=== PATIENT | female | born 1990 | race Caucasian/White ===

== ENCOUNTER 2020-06-11 05:17 | Inpatient (IN) | payer OTHER ==
[~2020-06-11] VITALS: Ht 165.1 cm; Wt 80.7 kg
--- OUTSIDE RECORDS SUMMARY | ~2020-06-11 | XMS | Encounter Summary ---
Demographics + + + | Address | [address] | | | [place] [address] | + + + | Home Phone | | + + + | Preferred Language | Unknown | + + + | Marital Status | Single | + + + | Mormon Affiliation | Unknown | + + + | Race | Unknown | + + + | Ethnic Group | Unknown | + + + Author + + + | Author | [facility] | | | and Shayanana | + + + | Organization | [facility] | | | and Shayanana | + + + | Address | Unknown | + + + | Phone | Unavailable | + + + Support + + +---------+ + | Name | Relationship | Address | Phone | + + +---------+ + | Rhea Cheema | ECON | Unknown | | + + +---------+ + Care Team Providers + +------+ + | Care Legal Archivist Name | Role | Phone | + +------+ + PCP | Unavailable | + +------+ + Encounter Details +--------+ + + + + | Date | Type | Department | Care Team | Description | +--------+ + + + + | 01/06/ | Hospital | [facility] | Layne Mccurdy | | | 2016 | Encounter | [facility] | [address] | | | | | [place] [facility] [address] | | | | | [address] | [place] [address] | | | | | [address] [place], [place] | [phone] | | | | | [address] | | | | | | [phone] | | | +--------+ + + + + Social History + +-------+ +--------+------+ | Tobacco Use | Types | Packs/Day | Years | Date | | | | | Used | | + +-------+ +--------+------+ | Never Assessed | | | | | + +-------+ +--------+------+ + + + | Sex Assigned at | Date Recorded | | | | + + + | Not on file | | + + + documented as of this encounter Plan of Treatment Not on filedocumented as of this encounter Visit Diagnoses Not on filedocumented in this encounter"
--- OUTSIDE RECORDS SUMMARY | ~2020-06-11 | XMS | Encounter Summary ---
Demographics + + + | Address | [address] | | | [place] [address] | + + + | Home Phone | | + + + | Preferred Language | Unknown | + + + | Marital Status | Single | + + + | Methodist Affiliation | Unknown | + + + | Race | Unknown | + + + | Ethnic Group | Unknown | + + + Author + + + | Author | [facility] | | | and Shayanana | + + + | Organization | [facility] | | | and [...] Team Providers + +------+ + | Care Manager Embalmer Funeral Director Name | Role | Phone | + +------+ + | Layne Mccurdy MD | PCP | | + +------+ + Encounter Details +--------+ + + + + | Date | Type | Department | Care Team | Description | +--------+ + + + + | 01/25/ | Hospital | [facility] | Layne Mccurdy | Pelvic pain | | 2017 | Encounter | [facility] | [address] | | | | | [address] | [address] | | | | | [place], [place] | [place] [address] | | | | | [address] | [phone] | | | | | [phone] | | | +--------+ + + + [...] + + documented as of this encounter Medications at Time of Discharge + + + +---------+ + + | Medication | Sig | Dispensed | Refills | Start | End Date | | | | | | Date | | + + + +---------+ + + | citalopram | 1 tablet daily | 30 | 3 | 01/11/20 | | | (CELEXA) 10 mg | | tablet | | 17 | 7 | | tablet | | | | | | + + + +---------+ + + | VALERIA-28 0.15-30 | | | 12 | 04/06/20 | | | MG-MCG per tablet | | | | 16 | 7 | + + + +---------+ + + documented as of this encounter Plan of Treatment Not on filedocumented as of this encounter Procedures + +--------+ + + + | Procedure Name | Priori | Date/Time | Associated Diagnosis | Comments | | | ty | | | | + +--------+ + + + | US PELVIS W | Routin | 01/25/2017 | Pelvic pain | Results for this | | TRANSVAGINAL | e | 3:29 PM | | procedure are in the | | | | PDT | | results section. | + +--------+ + + + documented in this encounter Results US Pelvis W Transvaginal (01/25/2017 3:29 PM PDT) + + | Specimen | + + | | + + + + + | Narrative | Performed At | + + + | [address] | | | [place], [place] [address] | | | NAME: KERRI WHELAN DATE: 01/25/2017 : | | | 1990 PT GENDER: F ROOM: Out PHYSICIAN: | | | LAYNE MCCURDY PID#: [id number] CC TO: MR#: | | | PROCEDURE: ULTRASOUND PELVIC (TRANSABDOMINAL AND TRANSVAGINAL) | | | INDICATIONS: Pelvic pain for 3 weeks. COMPARISON: | | | None. LMP: Spotting x 3 months. SURGERIES: No. LAB | | | RESULTS: N/A. HCG: Negative. FOOD AND BEVERAGE COORDINATOR: | | | N/A. FINDINGS - TRANSABDOMINAL IMAGING UTERUS:Measurement: | | | See below. Volume: See below. Endometrium: See below. | | | RIGHT ADNEXA:Ovary measurement: See below.LEFT ADNEXA:Ovary | | | measurement: See below.BLADDER:Normal. FINDINGS - TRANSVAGINAL | | | IMAGING UTERUS:Measurement: 3.5 x 4.5 x 7.0 cm Volume: 58.2 mL | | | Endometrium: 2.7 mmRIGHT ADNEXA:Ovary measurement: 20 x 22 x | | | 33 mmLEFT ADNEXA:Ovary measurement: 15 x 20 x 21 [id number] No | | | free fluid. IMPRESSION: No explanation for pelvic pain is | | | identified. Vascular flow is seen in each ovary. | | | Dictated by: Lora Jaime MD on 01/25/2017 at 16:34 Transcribed by: | | | on 01/26/2017 at 9:56 | | + + + + + | Procedure Note | + + | Chas, Rad Results In - 01/28/2017 8:50 PM PDT [facility] | | [address] [facility] | | [place], [place] [address] | | | | | | NAME: KERRI WHELAN DATE: 01/25/2017 | | : 1990 PT GENDER: F ROOM: Out | | PHYSICIAN: LAYNE MCCURDY PID#: [id number] | | CC TO: MR#: | | | | PROCEDURE: ULTRASOUND PELVIC (TRANSABDOMINAL AND TRANSVAGINAL) | | | | INDICATIONS: Pelvic pain for 3 weeks. | | | | COMPARISON: None. | | LMP: Spotting x 3 months. | | SURGERIES: No. | | LAB RESULTS: N/A. HCG: Negative. | | FOOD AND BEVERAGE COORDINATOR: N/A. | | | | FINDINGS - TRANSABDOMINAL IMAGING | | UTERUS:Measurement: See below. Volume: See below. Endometrium: See | | below. RIGHT ADNEXA:Ovary measurement: See below.LEFT ADNEXA:Ovary | | measurement: See below.BLADDER:Normal. | | FINDINGS - TRANSVAGINAL IMAGING | | UTERUS:Measurement: 3.5 x 4.5 x 7.0 cm Volume: 58.2 mL Endometrium: 2.7 | | mmRIGHT ADNEXA:Ovary measurement: 20 x 22 x 33 mmLEFT ADNEXA:Ovary | | measurement: 15 x 20 x 21 [id number] No free fluid. | | IMPRESSION: | | No explanation for pelvic pain is identified. Vascular flow is seen in | | each ovary. | | | | | | | | Dictated by: Lora Jaime MD on 01/25/2017 at 16:34 | | Transcribed by: KIM on 01/26/2017 at 9:56 | | | | | | | | | | | | | | | | | | | | | + + documented in this encounter Visit Diagnoses + + | Diagnosis | + + | Pelvic pain | + + documented in this encounter"
--- OUTSIDE RECORDS SUMMARY | ~2020-06-11 | XMS | Encounter Summary ---
Demographics + + + | Address | [address] | | | [place] [address] | + + + | Home Phone | | + + + | Preferred Language | Unknown | + + + | Marital Status | Single | + + + | Islam Affiliation | Unknown | + + + | Race | Unknown | + + + | Ethnic Group | Unknown | + + + Author + + + | Author | [facility] | | | and Shayanana | + + + | Organization | [facility] | | | [...] Team Providers + +------+ + | Care Pharmacist Intern Name | Role | Phone | + +------+ + | Minda Woods | PCP | | | TI | | | + +------+ + Reason for Visit + + + | Reason | Comments | + + + | Medication Refill | | + + + Encounter Details +--------+--------+ + + + | Date | Type | Department | Care Team | Description | +--------+--------+ + + + | 05/04/ | Refill | [facility] | Kimberly Lopez | Medication Refill | | 2018 | | [facility] | [address] | | | | | [place] [facility] | [address] [place] | | | | | [address] | [place] [address] | | | | | [address] [place], [place] | [phone] | | | | | [address] | | | | | | [phone] | | | +--------+--------+ + + + Social History + +-------+ [...]
--- OUTSIDE RECORDS SUMMARY | ~2020-06-11 | XMS | Encounter Summary ---
Demographics + + + | Address | [address] | | | [place] [address] | + + + | Home Phone | | + + + | Preferred Language | Unknown | + + + | Marital Status | Single | + + + | Baptist Affiliation | Unknown | + + + | Race | Unknown | + + + | Ethnic Group | Unknown | + + + Author + + + | Author | [facility] | | | and Shayanana | + + + | Organization | [facility] | | | [...] Team Providers + +------+ + | Care Auction Block Clerk Name | Role | Phone | + +------+ + | Layne Mccurdy MD | PCP | | + +------+ + Reason for Visit + + + | Reason | Comments | + + + | Medication Refill | | + + + Encounter Details +--------+--------+ + + + | Date | Type | Department | Care Team | Description | +--------+--------+ + + + | 10/19/ | Refill | [facility] | Shima Vega NP | Medication Refill | | 2018 | | [facility] | [address] [facility], | | | | | [facility] | [place] [address] | | | | | [address] | [phone] | | | | | [address] [place], [place] | | | | | | [address] | | | | | | [phone] | | | +--------+--------+ + + + [...] + + documented as of this encounter Miscellaneous Notes Telephone Encounter - Lashonda Suresh - 10/25/2018 2:49 PM PSTAsked pt. To contact [facility] and notify pharmacy of primary drPatel Saavedra. elephone Encounter - Lashonda Suresh - 10/25/2018 2:47 PM PSTPt. Has changed primary provider. elephone Encounter - Lashonda Suresh - 10/22/2018 10:27 AM PSTLeft mess. For pt. To call clinic. documented i n this encounter Plan of Treatment Not on filedocumented as of this encounter Visit Diagnoses Not on filedocumented in this encounter"
--- OUTSIDE RECORDS SUMMARY | ~2020-06-11 | XMS | Encounter Summary ---
Demographics + + + | Address | [address] | | | [place] [address] | + + + | Home Phone | | + + + | Preferred Language | Unknown | + + + | Marital Status | Single | + + + | Scientology Affiliation | Unknown | + + + | Race | Unknown | + + + | Ethnic Group | Unknown | + + + Author + + + | Author | [facility] | | | and Shayanana | + + + | Organization | [facility] | | | [...] Team Providers + +------+ + | Care Filler Shredder Machine Name | Role | Phone | + +------+ + | Layne Mccurdy MD | PCP | | + +------+ + Encounter Details +--------+ + + + + | Date | Type | Department | Care Team | Description | +--------+ + + + + | 05/17/ | Hospital | [facility] | David Lara | | | 2017 | Encounter | H[facility] | [address] | | | | [address] | | | | | [place], [place] | [place] | | | | | [id number] | [id number] | | | | | [phone] | [phone] | | | | | | | | +--------+ + + + + Social History + +-------+ +--------+------+ | Tobacco Use | Types | Packs/Day | Years | Date | | | | | Used | | + +-------+ +--------+------+ | Never Smoker | | | | | + +-------+ +--------+------+ + + +---------+ + | Alcohol Use | Drinks/Week | oz/Week | Comments | + + +---------+ + | Not Asked | 0 Standard drinks | 0.0 | | | | or equivalent | | | + + +---------+ + + + + | Sex Assigned at | Date Recorded | | | | + + + | Not on file | | + + + documented as of this encounter Last Filed Vital Signs + + + + + | Vital Sign | Reading | Time Taken | Comments | + + + + + | Blood Pressure | 111/78 | 05/17/2017 11:36 AM | | | | | PDT | | + + + + + | Pulse | 64 | 05/17/2017 11:36 AM | | | | | PDT | | + + + + + | Temperature | 36.6 C (97.9 F) | 05/17/2017 11:36 AM | | | | | PDT | | + + + + + | Respiratory Rate | 16 | 05/17/2017 11:36 AM | | | | | PDT | | + + + + + | Oxygen Saturation | 98% | 05/17/2017 11:36 AM | | | | | PDT | | + + + + + | Inhaled Oxygen | - | - | | | Concentration | | | | + + + + + | Weight | 62.1 kg (137 lb) | 05/17/2017 8:59 AM | | | | | PDT | | + + + + + | Height | 165.1 cm (5' 5") | 05/17/2017 8:59 AM | | | | | PDT | | + + + + + | Body Mass Index | 22.8 | 05/17/2017 8:59 AM | | | | | PDT | | + + + + + documented in this encounter Discharge Instructions Instructions Stacey Greene RN - 05/17/2017Medication changes: Toradol 10mg every 6 hours as needed for pain. Metamucil or miralax 4 times a day until you see Dr. Lara in the clinic, this will help tony p your bowels regular and decrease straining. GENERAL INSTRUCTIONS: DURING YOUR PROCEDURE YOU RECEIVED SEDATION, WHICH IMPAIRS YOUR JUDGEMENT AND COORDINATION FOR UP TO SIX HOURS. THEREFORE: DO NOT DRIVE DO NOT OPERATE MACHINERY DO NOT SIGN LEGAL DOCUMENTS, OR BE INVOLVED IN WORKING DECISIONS DO NOT SMOKE DO NOT DRINK ALCOHOLIC BEVERAGES PLAN ON RESTING FOR THE NEXT FEW HOURS REPORT ANY OF THE FOLLOWING TO YOUR PHYSICIAN: RECTAL BLEEDING, (A LITTLE BLOOD ON THE TOILET PAPER IS OK) NAUSEA AND / OR VOMITING, SHORTNESS OF BREATH documented in this encounter Medications at Time of Discharge [...] + + + +---------+ + + | | Take 1 tablet by | 30 | 11 | 03/28/20 | | | drospirenone-ethinyl | mouth Daily. | tablet | | 17 | 8 | | estradiol (XOCHILT) | | | | | | | 3-0.03 mg per tablet | | | | | | + + + +---------+ + + | ketorolac | Take 1 tablet by | 20 | 0 | 05/17/20 | | | (TORADOL) 10 MG | mouth every 6 hours | tablet | | 17 | 7 | | tablet | as needed for Pain | | | | | | | for up to 5 days. | | | | | + + + +---------+ + + documented as of this encounter H&P Notes David Lara MD - 05/17/2017 9:33 AM PDT Consulting provider: Dr. Jane Alejandra is a 26 y.o. 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 She continues to have some episodes with bleeding which occurred ap proximately once a week. He states that she's getting adequate fiber and fluid intake in e stool softening up.. She has a high fiber diet and eats well. Thing is bothering her the most at this point is the sentinel take at the end of the fistula site which causes irritati on and makes it difficult to keep the area clean. On anal exam in the office she has some redundant perianal tissue along the midline at the 6:00 position. There was no mucosal tear or raw surface leading down to this so I feel like the fissure part is healed up but does have issues with redundant perianal tissue. I recommended an exam under anesthesia for better evaluation of the extent of the disease w ith possible SLIS procedure and the excision of redundant perianal tissue. She will schedul e this for the summer when she has more free time for recovery. In the meantime she'll continue with a high-fiber diet and adequate fluid intake. Past Medical History Diagnosis Date PTSD (post-traumatic stress disorder) CFW Depression since 17 year old Anxiety driving Anal fissure 20 No past surgical history on file. Current Outpatient Rx Name Route Sig Dispense Refill citalopram (CELEXA) 10 mg tablet 1 tablet daily 30 tablet 3 VALERIA-28 0.15-30 MG-MCG per tablet 12 Dispense as written. No Known Allergies Social History Social History Marital Status: Single Spouse Name: N/A Number of Children: N/A Years of Education: N/A Occupational History Not on file. Social History Main Topics Smoking status: Never Smoker Smokeless tobacco: Not on file Alcohol Use: Not on file Drug Use: Not on file Sexual Activity: Not on file Other Topics Concern Not on file Social History Narrative No family history on file. Review of Systems: Review of Systems Objective: There were no vitals taken for this visit. Anal exam: As mentioned above is in the perianal tissue at the 6:00 position in the midlin e. Diagnostic Data: Assessment: Long history of anal fissure issues but what appears to resolved with only intermittent pro blems with the redundant perianal tissue being the greatest issues of concern at this time. Plan: We will reevaluate her for possible exam under anesthesia and excision of redundant periana l tissue the summer. David Lara MD do cumented in this encounter Nursing Notes Stacey Greene RN - 05/17/2017 11:07 AM PDTFood provided, pt to phase 2 IARyStacey carpio RN - 7 11:02 AM PDTPt awake, moose water well, ordered food and coffee. VSS, no c/o pain/nauseaEle ctronically signed by Stacey Greene RN at 05/17/2017 11:02 AM PDTdocumented in this enc ounter Miscellaneous Notes Op Note - David Lara MD - 05/17/2017 10:26 AM PDTOperative Note Name: Kerri Alejandra Date: 05/17/17 Surgeon: David Dominique Assistants: Pre-operative Diagnosis: History of anal fissures and redundant perianal tissue Post-operative Diagnosis: No active fissure but some excessive perianal tissue Operation performed: Exam under anesthesia with excision of excessive perianal tissue Estimated Blood Loss: Minimal Anesthesia: Tr Batista CRNA Indications: Kerri Alejandrais a 26 y.o.femalewith a chronic history of Anal fis sure issues for a 4 year period where she has had to use creams, suppositories, and stool so fteners for treatment. She continues to have some episodes with bleeding which occurred ap proximately once a week. She states that she's getting adequate fiber and fluid intake Fo r the stool to soften up. She has a high fiber diet and eats well. The thing that is bothe ring her the most at this point is the sentinel take at the end of the fistula site which ca uses irritation and makes it difficult to keep the area clean. An EUA was recommended for b valeria evaluation of any residual fissure, and a to perform a SLIS if indicated. Findings: No active fissure although she does have some redundant perianal tissue at the 6: 00 position for which excision at this excessive tissue was performed. Procedure: The surgery was reviewed with the patient in the pre-operative holding area. All question s were answered. The patient was brought to the operating room after the nurse had confirmed the patient frida ntification, patient allergies, and consent for signatures and procedure. The patient was transferred to the operating room where general anesthesia was given. The patient was then placed in the prone position with appropriate padding precautions and in a slight flexed position. The buttocks were taped apart and the areas prepped and draped in s terile fashion. Exam under anesthesia was performed with no active fissures or mucosal tear s. She did have a significant amount of redundant perianal tissue at the 6:00 position for which this area was excised in elliptical fashion using electrocautery and closed with a run lennox interlocking 3-0 Vicryl suture. Infiltration in the subcutaneous tissue surrounding th e excision site was performed with local anesthetic after which a dry sterile dressing was a pplied and the patient was transferred to recovery in stable condition. Drains: None Specimens: Redundant perianal tissue. This was not sent to pathology. Needle and sponge count: Reported as correct Complications: None; patient tolerated the procedure well. Disposition: Pt was transferred to the Recovery room in stable condition. Electronically Signed by: David Lara MD, 05/17/2017 10:26 [facility] Portions of this chart may have been created with [employer] voice recognition software. Occasi onal wrong-word or sound-alike substitutions may have occurred due to the inherent mackey itations of voice recognition software. Please read the chart carefully and recognize, using context, where these substitutions have occurred. documented in this encounter Plan of Treatment Not on filedocumented as of this encounter Procedures + +--------+ + + + | Procedure Name | Priori | Date/Time | Associated Diagnosis | Comments | | | ty | | | | + +--------+ + + + | EXCISION LESION SKIN | | 05/17/2017 | Perianal lesion | | | | | 9:40 AM | | | | | | PDT | | | + +--------+ + + + documented in this encounter Visit Diagnoses Not on filedocumented in this encounter Administered Medications + +--------+---------+------+------+------+ | Medication Order | MAR | Action | Dose | Rate | Site | | | Action | Date | | | | + +--------+---------+------+------+------+ + +---+ | albuterol 2.5 mg/3 mL nebulizer | | | solution 2.5 mg 2.5 mg, | | | Nebulization, ONCE PRN, Wheezing, | | | Starting Mon05/17/17 at 1041, | | | For 1 dose, Notify anesthesia if | | | patient is wheezing and does not | | | have a history of asthma or COPD | | | or current smoking., | | | Recovery/Phase I | | + +---+ | | | + +---+ + +---------+ +-----+-------+---+ | cefOXitin (MEFOXIN) 1 g in | New Bag | 05/17/20 | 1 g | 100 | | | sodium chloride 0.9% 50 mL IVPB | | 17 9:55 | | mL/hr | | | 1 g, Intravenous, Administer over | | AM PDT | | | | | 30 Minutes, Prior to Incision, | | | | | | | Starting Mon05/17/17 at 0854, For | | | | | | | 1 dose, administer within 1 hour | | | | | | | of incision Activate system and | | | | | | | mix before use., Pre-op, | | | | | | | Indications: Surgical Prophylaxis | | | | | | + +---------+ +-----+-------+---+ + +---+ | | | + +---+ | fentaNYL (PF) injection 25-50 | | | mcg 25-50 mcg, Intravenous, | | | EVERY 5 MIN PRN, Pain, Starting | | | 05/17/17 at 1041, Maximum | | | total dose 250 mcg. PACU IV | | | Narcotic Priority: Only use | | | fentanyl for immediate post-op | | | pain (one dose) or breakthrough | | | pain when any other IV narcotics | | | ordered have been ineffective (if | | | ordered). If both morphine and | | | hydromorphone are ordered, use | | | morphine first, and use | | | hydromorphone if morphine | | | ineffective., Recovery/Phase I | | + +---+ | | | + +---+ | HYDROmorphone (DILAUDID) | | | injection 0.2-0.5 mg 0.2-0.5 mg, | | | Intravenous, EVERY 5 MIN PRN, | | | Pain, Starting 05/17/17 at | | | 1041, Maximum total dose 4 mg. | | | PACU IV Narcotic Priority: Only | | | use fentanyl for immediate | | | post-op pain (one dose) or | | | breakthrough pain when any other | | | IV narcotics ordered have been | | | ineffective (if ordered). If | | | both morphine and hydromorphone | | | are ordered, use morphine first, | | | and use hydromorphone if morphine | | | ineffective., Recovery/Phase I | | + +---+ | | | + +---+ + +-------+ +-------+---+---+ | ketorolac (TORADOL) injection | Given | 05/17/20 | 30 mg | | | | 30 mg 30 mg, Intravenous, ONCE, | | 17 10:41 | | | | | 05/17/17 at 1100, For 1 dose, | | AM PDT | | | | | Recovery/Phase I | | | | | | + +-------+ +-------+---+---+ + +---+ | | | + +---+ | ondansetron (ZOFRAN) injection | | | 4 mg 4 mg, Intravenous, ONCE | | | PRN, Nausea, Starting Mon05/17/17 | | | at 1041, For 1 dose, | | | Recovery/Phase I | | + +---+ | | | + +---+ documented in this encounter
--- OUTSIDE RECORDS SUMMARY | ~2020-06-11 | XMS | Encounter Summary ---
Demographics + + + | Address | [address] | | | [place] [address] | + + + | Home Phone | | + + + | Preferred Language | Unknown | + + + | Marital Status | Single | + + + | Anabaptist Affiliation | Unknown | + + + | Race | Unknown | + + + | Ethnic Group | Unknown | + + + Author + + + | Author | [facility] | | | and Shayanana | + + + | Organization | [facility] | | | and [...] Team Providers + +------+ + | Care Specialties Operator Name | Role | Phone | + +------+ + | Layne Mccurdy MD | PCP | | + +------+ + Reason for Referral Evaluate & Treat (Routine) +--------+ + + + + + | Status | Reason | Specialty | Diagnoses / | Referred By | Referred To | | | | | Procedures | Contact | Contact | +--------+ + + + + + | Closed | Specialty | Surgery / | Diagnoses | Justin, | [facility] | | | Services | General | Anal | Radha, | [facility] | | | Required | Surgery | fissure | [employer] [address] | Surgery Clnc | | | | | | [address]E [facility] | [address] | | | | | [place] | | | | | | [place] [address] | [place], | | | | | | Phone: | [place] [address] | | | | | | [phone] | Phone: | | | | | | Fax: | [phone] | | | | | | [phone] | Fax: | | | | | | | [phone] | +--------+ + + + + + Reason for Visit + + + | Reason | Comments | + + + | Abdominal Cramping | possible UTI | + + + | Results | PAP | + + + | Other | anal martin | + + + Encounter Details +--------+---------+ + + + | Date | Type | Department | Care Team | Description | +--------+---------+ + + + | 01/10/ | Office | [facility] | Radha Anderson, | Anal fissure | | 2017 | Visit | [facility] | [facility] [address] [facility] | (Primary Dx); | | | | [place] [facility] | [address] [place], [place] | Abdominal | | | | CARE [address] | [address] | discomfort; Pelvic | | | | [address] [place], [place] | | pain | | | | [address] | | | | | | [phone] | | | +--------+---------+ + + + Social History + +-------+ [...] + + + | Blood Pressure | 122/74 | 01/10/2017 8:38 AM | | | | | PST | | + + + + + | Pulse | 76 | 01/10/2017 8:38 AM | | | | | PST | | + + + + + | Temperature | - | - | | + + + + + | Respiratory Rate | 16 | 01/10/2017 8:38 AM | | | | | PST | | + + + + + | Oxygen Saturation | 97% | 01/10/2017 8:38 AM | | | | | PST | | + + + + + | Inhaled Oxygen | - | - | | | Concentration | | | | + + + + + | Weight | 65.9 kg (145 lb 3.2 | 01/10/2017 8:38 AM | | | | oz) | PST | | + + + + + | Height | 165.1 cm (5' 5") | 01/10/2017 8:38 AM | | | | | PST | | + + + + + | Body Mass Index | 24.16 | 01/10/2017 8:38 AM | | | | | PST | | + + + + + documented in this encounter Progress Radha Salas FNP - 01/10/2017 8:48 AM PSTFormatting of this note might be different f rom the original. History: Kerri Torres Justyn is a 26 y.o. female Chief Complaint: Abdominal Cramping; Results; and Other HPI Anal fissure a 4 years-had used creams, suppositories, with some bleeding. She has a high f iber diet and eats well. She denies discharge. She is using OCP and LMP 2 weeks ago. She is seeing therapist for anxiety and doing well on Celexa and needs refill. She is going to [facility] for 1 month and excited about that. Patient Active Problem List Diagnosis Deviated nasal septum Anxiety Medications Outpatient Prescriptions Prior to Visit Medication Sig Dispense Refill citalopram (CELEXA) 10 mg tablet 1/2 tablet daily for a week then one daily 30 tablet 3 VALERIA-28 0.15-30 MG-MCG per tablet 12 No facility-administered medications prior to visit. Review of Systems Review of Systems Constitutional: Negative. HENT: Negative. Eyes: Negative. Respiratory: Negative. Cardiovascular: Negative. Gastrointestinal: Positive for abdominal pain and anal bleeding (she has had a fissure for 4 years and tried several things, wanted to know if Botox was an option she googled and brittneyun d that). Negative for abdominal distention. Endocrine: Negative. Genitourinary: Positive for vaginal bleeding and pelvic pain (with periumbilcal cramping). Negative for vaginal discharge, difficulty urinating, vaginal pain and dyspareunia. Allergic/Immunologic: Negative. Neurological: Negative. Hematological: Negative. Psychiatric/Behavioral: The patient is nervous/anxious (appears nervous and figidty). Physical Examination: BP 122/74 mmHg | Pulse 76 | Resp 16 | Ht 1.651 m (5' 5") | Wt 65.862 kg (145 lb 3.2 oz) | B WI 24.16 kg/m2 | SpO2 97% Physical Exam Constitutional: She is oriented to person, place, and time. She appears well-developed and well-nourished. HENT: Right Ear: External ear normal. Eyes: EOM are normal. Pupils are equal, round, and reactive to light. Neck: Normal range of motion. Neck supple. Cardiovascular: Normal rate, regular rhythm and normal heart sounds. Abdominal: Soft. Bowel sounds are normal. She exhibits no distension. There is no tendernes s. There is no rebound and no guarding. Genitourinary: Vagina normal and uterus normal. No vaginal discharge found. Musculoskeletal: Normal range of motion. Neurological: She is alert and oriented to person, place, and time. Skin: Skin is warm and dry. Psychiatric: She has a normal mood and affect. Her behavior is normal. Thought content norm al. Orders Only on 04/05/2016 Component Date Value Ref Range Status AMORPHOUS CRYSTALS 04/05/2016 None Seen None Seen /HPF Final BACTERIA UA 04/05/2016 1+* None Seen,Trace /HPF Final BILIRUBIN UA 04/05/2016 Negative Negative - Final CASTS 04/05/2016 None Seen None Seen /LPF Final CLARITY 04/05/2016 Slightly Cloudy Final COLOR 04/05/2016 Yellow Final Crystals Type 04/05/2016 None Seen None Seen /LPF Final Epithelial Cells 04/05/2016 Moderate* None Seen /HPF Final GLUCOSE UA 04/05/2016 Negative Negative mg/dL Final KETONES UA 04/05/2016 Trace* Negative mg/dL Final LEUKOCYTES ESTERASE UA 04/05/2016 Small* Negative - Final MUCUS UA 04/05/2016 None Seen None Seen,Trace /HPF Final NITRITE UA 04/05/2016 Positive* Negative - Final PH UA 04/05/2016 5.0 5.0-8.0 - Final PROTEIN UA 04/05/2016 >=300 mg/dL Negative mg/dL Final RBC UA 04/05/2016 11-25* None Seen /HPF Final Specific Noti 04/05/2016 1.034 Final WBC UA 04/05/2016 51-100* None Seen /HPF Final YEAST 04/05/2016 None Seen None Seen /HPF Final BLOOD UA 04/05/2016 Large* Negative - Final UROBILINOGEN UA 04/05/2016 0.2 E.U./dL 0.2 E.U./dL Final Culture 04/05/2016 YES* NO - Final Preg Test, Ur 04/05/2016 Negative Final Assessment/Plan: HCG negative today and no signs of BV or PID to cause pelvic. Urine dip negative. She did h ave some old blood at cervical entrance, as she reports she does have break through bleeding with these pills. She has had a little diarrhea lately but is normal for her with her anxie ty. We sent cervical cultures and urine for GC. Will refer her to Dr. Lara to evaluate fissu re. ICD-10-CM ICD-9-CM 1. Abdominal discomfort R10.9 789.00 POCT Urinalysis Dipstick Non-Automated POCT Test, Urine, QUAL 2. Pelvic pain R10.2 [id number] C. trachomatis and N. gonorrhoeae, NAAT 3. Anal fissure K60.2 565.0 * AMB Referral to [facility] General Surg PLAN: Sent cultures for pelvic, HCG negative, GC urine pending, See Dr. Lara for evaluation Return if still having issues Radha BRAUN- documented in this encounter Plan of Treatment + + +--------+ + + | Name | Type | Priori | Associated Diagnoses | Order Schedule | | | | ty | | | + + +--------+ + + | * AMB Referral to CC | Outpatient | Routin | Anal fissure | Ordered: 01/10/2017 | | [facility] General Surg | Referral | e | | | + + +--------+ + + documented as of this encounter Procedures + +--------+ + + + | Procedure Name | Priori | Date/Time | Associated Diagnosis | Comments | | | ty | | | | + +--------+ + + + | PAP SMEAR - BEAKER | Routin | 01/10/2017 | Pelvic pain | Results for this | | SENDOUT | e | 10:00 AM | | procedure are in the | | | | PST | | results section. | + +--------+ + + + | POCT TEST, | Routin | 01/10/2017 | Abdominal | Results for this | | URINE, QUAL | e | 9:14 AM | discomfort | procedure are in the | | | | PST | | results section. | + +--------+ + + + | POCT URINALYSIS | Routin | 01/10/2017 | Abdominal | Results for this | | DIPSTICK | e | 9:13 AM | discomfort | procedure are in the | | | | PST | | results section. | + +--------+ + + + | C. TRACHOMATIS AND | Routin | 01/10/2017 | Pelvic pain | Results for this | | N. GONORRHOEAE, NAAT | e | 9:05 AM | | procedure are in the | | | | PST | | results section. | + +--------+ + + + documented in this encounter Results PAP SMEAR - BEAKER SENDOUT (01/10/2017 10:00 AM PST) + + + + + + | Component | Value | Ref Range | Performed | Pathologist | | | | | At | Signature | + + + + + + | PAP | See NoteComment: Test | | REFERENCE | | | | Performed At:[facility] | | LAB | | | | [place] [id number] | | [facility] | | | | [facility] [place], [place] | | | | | | [id number]:Negative | | | | | | for Intraepithelial | | | | | | Lesion or | | | | | | MalignancyGYNComment:Rep | | | | | | eat smear at your | | | | | | discretion.Specimen | | | | | | processed successfully | | | | | | by [employer] | | | | | | [employer], [facility] | | | | | | Systems, | | | | | | [facility].Specimen | | | | | | Adequacy:Satisfactory | | | | | | for evaluation.No | | | | | | transformation zone | | | | | | component | | | | | | presentClinical | | | | | | History:Prev Abn | | | | | | SmearAbn BleedingPrior | | | | | | Pap History:[id number] | | | | | | 01/07/16 | | | | | | Negative for | | | | | | Intraepithelial Lesion | | | | | | or [id number] | | | | | | 03/03/15 | | | | | | Atypical squamous cells | | | | | | of undetermined | | | | | | significance | | | | | | (ASC-US)[id number] | | | | | | 03/03/15 HPV | | | | | | High Risk; | | | | | | [id number] | | | | | | 11/25/10 Negative | | | | | | for Intraepithelial | | | | | | Lesion or | | | | | | [id number] | | | | | | 08/07/08 | | | | | | Negative for | | | | | | Intraepithelial Lesion | | | | | | or Malignancy | | | | + + + + + + + + | Specimen | + + | Specimen from | | genital system | | (specimen) - Cervix | + + + + + + + | Performing | Address | City/State/Zipcode | Phone Number | | Organization | | | | + + + + + | REFERENCE LAB | [address] [facility] | [place], [place] | [phone] | | [facility] | | [address] | | + + + + + | REFERENCE LAB | [address] [facility] | [place], [place] | [phone] | | [facility] | | [address] | | + + + + + POCT Test, Urine, QUAL (01/10/2017 9:14 AM PST) + + + + + + | Component | Value | Ref Range | Performed | Pathologist | | | | | At | Signature | + + + + + + | | Negative | Negative | | | | Test, | | | | | | Urine, POC | | | | | + + + + + + | Internal QC | Acceptable | Acceptable | | | + + + + + + | Specific | | 1.010, 1.015, | | | | Noti, | | 1.020, 1.025 | | | | POC | | | | | + + + + + + | Lot Number | | | | | + + + + + + | Expiration | | | | | | Date | | | | | + + + + + + + + | Specimen | + + | Urine specimen | | (specimen) | + + POCT Urinalysis Dipstick Non-Automated (01/10/2017 9:13 AM PST) + + + + + + | Component | Value | Ref Range | Performed | Pathologist | | | | | At | Signature | + + + + + + | Color, UA, | Yellow | Yellow, Light | | | | POC | | Yellow | | | + + + + + + | Clarity, | Clear | | | | | UA, POC | | | | | + + + + + + | Glucose, | Negative | Negative | | | | UA, POC | | | | | + + + + + + | Bilirubin, | Negative | Negative | | | | UA, POC | | | | | + + + + + + | Ketones, | Negative | Negative, 100 | | | | UA, POC | | mg/dL | | | + + + + + + | Specific | 1.005 | 1.001 - 1.030 | | | | Noti, | | | | | | UA, POC | | | | | + + + + + + | Blood, UA, | Negative | Negative | | | | POC | | | | | + + + + + + | pH, UA, POC | 5.0 | 5.0, 6.0, 7.0, | | | | | | 8.0, 5.5, 6.5, | | | | | | 7.5 | | | + + + + + + | Protein, | Negative | Negative | | | | UA, POC | | | | | + + + + + + | Urobilinoge | Negative | 0.2, Negative, | | | | n, UA, POC | | Normal, < 0.2 | | | | | | mg/dL, 1 mg/dL, | | | | | | < 0.2 E.U./dl, | | | | | | 1.0 E.U./dL, | | | | | | 0.2 mg/dL | | | + + + + + + | Nitrite, | Negative | Negative | | | | UA, POC | | | | | + + + + + + | Leukocyte | Negative | Negative | | | | Esterase, | | | | | | UA, POC | | | | | + + + + + + + + | Specimen | + + | Urine specimen | | (specimen) | + + C. trachomatis and N. gonorrhoeae, NAAT (01/10/2017 9:05 AM PST) + + + + + + | Component | Value | Ref Range | Performed | Pathologist | | | | | At | Signature | + + + + + + | NEISSERIA | Not Detected | Not Detected | [facility] | | | GONORRHOEAE | | | [facility] | | | DNA | | | [facility]PITAL | | | | | | LABORATORY | | + + + + + + | Chlamydia | Not Detected | Not Detected | [facility] | | | trachomatis | | | [facility] | | | DNA PCR | | | HOSPITAL | | | | | | LABORATORY | | + + + + + + + + | Specimen | + + | Urine - Urine | | specimen (specimen) | + + + + + + + | Performing | Address | City/State/Zipcode | Phone Number | | Organization | | | | + + + + + | [facility] | [address] | [place], [place] | [phone] | | HOSPITAL [facility] | | [address] | | + + + + + documented in this encounter Visit Diagnoses + + | Diagnosis | + + | Anal fissure - Primary | + + | Abdominal discomfort Abdominal pain, unspecified site | + + | Pelvic pain | + + documented in this encounter
--- OUTSIDE RECORDS SUMMARY | ~2020-06-11 | XMS | Encounter Summary ---
Demographics + + + | Address | [address] | | | [place] [address] | + + + | Home Phone | | + + + | Preferred Language | Unknown | + + + | Marital Status | Single | + + + | Hoahaoism Affiliation | Unknown | + + + | Race | Unknown | + + + | Ethnic Group | Unknown | + + + Author + + + | Author | [facility] | | | and Shayanana | + + + | Organization | [facility] | | | [...] Team Providers + +------+ + | Care Disintegrator Name | Role | Phone | + +------+ + | Layne Mccurdy MD | PCP | | + +------+ + Reason for Visit + + + | Reason | Comments | + + + | Anal Fissure | | + + + Encounter Details +--------+---------+ + + + | Date | Type | Department | Care Team | Description | +--------+---------+ + + + | 01/25/ | Office | [facility] | David Lara | Chronic anal fissure | | 2017 | Visit | [facility] | [address] | (Primary Dx) | | | | [place] [facility] | [address] | | | | | [facility] [address] | [place], [place] | | | | | [address] [place], [place] | [address] | | | | | [address] | [phone] | | | | | [phone] | | | +--------+---------+ + + + [...] + + documented as of this encounter Progress Notes David Lara MD - 01/25/2017 5:34 PM PDT Subjective: Referring provider:No additional provider found [facility] Consulting provider: Dr. Jane Alejandra is a [...] getting adequate fiber and fluid intake in th e stool softening up.. She has a [...] of redundant periana l tissue the summer. Electronically Signed by: David Lara MD, 01/25/2017 17:34 Portions of this chart may have been created with [employer] voice recognition software. Occasi onal wrong-word or sound-alike substitutions may have occurred due to the inherent mackey itations of voice recognition software. Please read the chart carefully and recognize, using context, where these substitutions have occurred. 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
--- OUTSIDE RECORDS SUMMARY | ~2020-06-11 | XMS | Encounter Summary ---
Demographics + + + | Address | [address] | | | [place] [address] | + + + | Home Phone | | + + + | Preferred Language | Unknown | + + + | Marital Status | Single | + + + | Sikh Affiliation | Unknown | + + + | Race | Unknown | + + + | Ethnic Group | Unknown | + + + Author + + + | Author | [facility] | | | and Shayanana | + + + | Organization | [facility] | | | [...] Team Providers + +------+ + | Care Hand Sander Name | Role | Phone | + +------+ + | Layne Mccurdy MD | PCP | | + +------+ + Encounter Details +--------+---------+ + + + | Date | Type | Department | Care Team | Description | +--------+---------+ + + + | 05/17/ | Surgery | [facility] | David Lara | EXCISION LESION SKIN | | 2016 | | [facility]PITAL [facility] | [address] | | | | | [address] | [address] | | | | | [place], [place] | [place], [place] | | | | | [address] | [address] | | | | | [phone] | [phone] | | | | | | | | +--------+---------+ + + + [...] + + + | Blood Pressure | 105/67 | 05/17/2017 9:24 AM | | | | | PDT | | + + + + + | Pulse | 54 | 05/17/2017 9:24 AM | | | | | PDT | | + + + + + | Temperature | 36.5 C (97.7 F) | 05/17/2017 9:24 AM | | | | | PDT | | + + + + + | Respiratory Rate | 14 | 05/17/2017 9:24 AM | | | | | PDT | | + + + + + | Oxygen Saturation | 96% | 05/17/2017 9:24 AM | | | | | PDT [...] AM PDTFood provided, pt to phase 2 yStacey carpio RN - 7 11:02 AM PDTPt awake, moose water well, ordered food and coffee. VSS, no c/o pain/nauseaEle ctronically signed by Stacey Greene RN at 05/17/2017 11:02 AM PDTdocumented in this enc ounter Miscellaneous Notes Op Note - David Lara MD - 05/17/2017 10:26 AM PDTOperative Note Name: Kerri Brian Justyn Date: 05/17/17 Surgeon: David Dominique Assistants: Pre-operative Diagnosis: History of anal fissures and redundant perianal tissue Post-operative Diagnosis: No active fissure but some excessive perianal tissue Operation performed: Exam under anesthesia with excision of excessive perianal tissue Estimated Blood Loss: Minimal Anesthesia: Tr Batista CRNA Indications: Kerri Pottergerardois a 26 y.o.femalewith a chronic history of [...] by: David Lara MD, 05/17/2017 10:26 CC [facility] Portions of this chart may have been created with [employer] voice recognition software. Occasi onal wrong-word or [...] + | Diagnosis | + + | Perianal lesion Other specified disorder of rectum and anus | + + documented in this encounter Administered Medications + +--------+---------+------+------+------+ [...] MIN PRN, Pain, Starting | | | Mon05/17/17 at 1041, Maximum | | | total [...] MIN PRN, | | | Pain, Starting Mon05/17/17 at | | | 1041, Maximum total [...] 17 10:41 | | | | | Mon05/17/17 at 1100, For 1 dose, | | AM PDT | | | | | Recovery/Phase I | | | | | | + +-------+ +-------+---+---+ +---+---+ | | | +---+---+ + +-------+ +--------+---+ + | lidocaine 1%-EPINEPHrine | Given | 05/17/20 | 10 mLs | | Surgical | | 1:100,000 injection PRN, | | 17 10:07 | | | Site | | Starting Mon05/17/17 at 1007, | | AM PDT | | | | | Intra-op | | | | | | + +-------+ +--------+---+ + + +---+ | | | + +---+ | ondansetron (ZOFRAN) injection | | | 4 mg 4 mg, Intravenous, ONCE | | | PRN, Nausea, Starting Mon05/17/17 | | | at 1041, For 1 dose, | | | Recovery/Phase I | | + +---+ | | | + +---+ documented in this encounter
--- OUTSIDE RECORDS SUMMARY | ~2020-06-11 | XMS | Encounter Summary ---
Demographics + + + | Address | [address] | | | [place] [address] | + + + | Home Phone | | + + + | Preferred Language | Unknown | + + + | Marital Status | Single | + + + | Protestant Affiliation | Unknown | + + + | Race | Unknown | + + + | Ethnic Group | Unknown | + + + Author + + + | Author | [facility] | | | and Shayanana | + + + | Organization | [facility] | | | [...] Team Providers + +------+ + | Care Instrument Mechanic Name | Role | Phone | + +------+ + | Minda Woods | PCP | | | PA-Dean | | | + +------+ + Reason for Visit + + + | Reason | Comments | + + + | Initial | | | Visit | | + + + Encounter Details +--------+ + + + + | Date | Type | Department | Care Team | Description | +--------+ + + + + | 04/22/ | Initial | [facility] | Kimberly Lopez | GA: [id number] | | 2020 | | [facility] | MD [address] | | | | | [place] [place] [facility] | [address] [place], | | | | | CARE [address] | [place] [address] | | | | | [address] [place], [place] | [phone] | | | | | [address] | | | | | | [phone] | | | +--------+ + + + + Social History + +-------+ +--------+------+ | Tobacco Use | Types | Packs/Day | Years | Date | | | | | Used | | + +-------+ +--------+------+ | Never Smoker | | | | | + +-------+ +--------+------+ + +---+---+---+ | Smokeless Tobacco: | | | | | Never Used | | | | + +---+---+---+ + + +---------+ + | Alcohol Use [...] + + + | Blood Pressure | 96/60 | 04/22/2020 9:26 AM | | | | | PDT | | + + + + + | Pulse | 82 | 04/22/2020 9:26 AM | | | | | PDT | | + + + + + | Temperature | 36.8 C (98.2 F) | 04/22/2020 9:26 AM | | | | | PDT | | + + + + + | Respiratory Rate | 16 | 04/22/2020 9:26 AM | | | | | PDT | | + + + + + | Oxygen Saturation | 97% | 04/22/2020 9:26 AM | | | | | PDT | | + + + + + | Inhaled Oxygen | - | - | | | Concentration | | | | + + + + + | Weight | 77.1 kg (170 lb) | 04/22/2020 9:26 AM | | | | | PDT | | + + + + + | Height | 165.1 cm (5' 5") | 04/22/2020 9:26 AM | | | | | PDT | | + + + + + | Body Mass Index | 28.29 | 04/22/2020 9:26 AM | | | | | PDT | | + + + + + documented in this encounter Patient Instructions Patient Instructions Brandietipcristina Kimberly - 04/22/2020 9:35 AM PDTIt was great to see you today! Discussed she will cont her care w/[facility] in [place] and will f/u for care for b ira after delivery and for circumcision as well while she is here as well as her care as needed as well. 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 She lives in [place] but normally stay s in [place] during summer when she is not teaching. She would like to have her baby circumc ised after giving as he is a male and would like to have this done here. She has a h/o anxiety and depression and is concerned about post- depression. She has used Cetalopr am in the past and this helped with her anxiety. She hasn't had any symptoms currently. Adam es MAN, visual changes, or swelling. Good movement. Her next appointment with her OBGYN is next Monday. TA 06/13/20 LMP 09/07/19 Male fetus on u/s. Rh negative- RHOgam received at 28weeks. Has received Flu shot. States her Glucola is normal. She will continue with her OB provider in [place] and will f/u with baby after delivery f or care. Discussed we do have counselors available in the community if needed as well as medication assistance if needed for post- depression in the future. The documentation for this encounter was entered by Kimberly Matos, Certified Powerhouse Attendant , and accurately and completely reflects the service(s) I personally performed and the decis ions made by myself, Kimberly Lopez MD at this date and time of service.Electronically zara d by Kimberly Lopez MD at 04/22/2020 4:30 PM PDTdocumented in this encounter Plan of Treatment Not on filedocumented as of this encounter Procedures + +--------+ + + + | Procedure Name | Priori | Date/Time | Associated Diagnosis | Comments | | | ty | | | | + +--------+ + + + | POCT URINALYSIS | Routin | 04/22/2020 | 32 weeks gestation | Results for this | | DIPSTICK | e | 9:35 AM | of | procedure are in the | | | | PDT | | results section. | + +--------+ + + + documented in this encounter Results POCT Urinalysis Dipstick Non-Automated (04/22/2020 9:35 AM PDT) + + + + + + | [...] 1.001 - 1.030 | | | | [place], | | | | | | UA, POC | | | | | + + + + + + | Blood, UA, | Negative | Negative | | | | POC | | | | | + + + + + + | pH, UA, POC | 7.0 | 5.0, 6.0, 7.0, | | | | | | 8.0, 5.5, 6.5, | | | | | | 7.5 | | | + + + + + + | Protein, | Trace (A) | Negative | | | | UA, [...] + + + + | Leukocyte | 1+ (A) | Negative | | | | Esterase, | | | | | | UA, POC | | | | | + + + + + + + + | Specimen | + + | Urine | + + documented in this encounter Visit Diagnoses + + | Diagnosis | + + | 32 weeks gestation of - Primary state, incidental | + + documented in this encounter
--- OUTSIDE RECORDS SUMMARY | ~2020-06-11 | XMS | Encounter Summary ---
Demographics + + + | Address | [address] | | | [place] [address] | + + + | Home Phone | | + + + | Preferred Language | Unknown | + + + | Marital Status | Single | + + + | Synagogue Affiliation | Unknown | + + + | Race | Unknown | + + + | Ethnic Group | Unknown | + + + Author + + + | Author | [facility] | | | and Shayanana | + + + | Organization | [facility] | | | [...] Team Providers + +------+ + | Care Dietitian Assistant Name | Role | Phone | + +------+ + PCP | Unavailable | + +------+ + Encounter Details +--------+ + + + + | Date | Type | Department | Care Team | Description | +--------+ + + + + | 04/05/ | Hospital | [facility] | Levi Roca | | | 2015 | Encounter | HOSPITAL EMERGENCY | MD [address] | | | | [address] | [facility] | | | | | [address] [place], [place] | [place] [address] | | | | | [address] | [phone] | | | | | [phone] | | | +--------+ + + + [...]
--- OUTSIDE RECORDS SUMMARY | ~2020-06-11 | XMS | Encounter Summary ---
Demographics + + + | Address | [address] | | | [place] [address] | + + + | Home Phone | | + + + | Preferred Language | Unknown | + + + | Marital Status | Single | + + + | Rastafarian Affiliation | Unknown | + + + | Race | Unknown | + + + | Ethnic Group | Unknown | + + + Author + + + | Author | [facility] | | | and Shayanana | + + + | Organization | [facility] | | [...] Team Providers + +------+ + | Care Panel Instrument Repairer Name | Role | Phone | + +------+ + | Minda Woods | PCP | | | PA-C | | | + +------+ + Encounter Details +--------+ + + + + | Date | Type | Department | Care Team | Description | +--------+ + + + + | 10/28/ | Hospital | [facility] | Cedric Suárez | with 3 | | 2018 | Encounter | HOSPITAL ULTRASOUND | DO [address] | completed weeks | | | | [address] | [place] | gestation | | | | [place], [place] | [place] [address] | | | | | [address] | [phone] | | | | | [phone] | | | +--------+ + + + [...] + +---------+ + + | citalopram | TAKE ONE TABLET BY | 30 | 0 | 10/19/20 | | | (CELEXA) 10 mg | MOUTH ONE TIME DAILY | tablet | | 18 | 0 | | tablet | | | | | | + + + +---------+ + + | | TAKE 1 TABLET BY | 276 | 0 | 04/12/20 | | | drospirenone-ethinyl | MOUTH ONCE DAILY. | tablet | | 18 | 0 | | estradiol (XOCHILT) | | | | | | | 3-0.03 mg per tablet | | | | | | + + + +---------+ + + | omeprazole | Take 1 tablet by | 30 each | 0 | 09/20/20 | | | (PRILOSEC) 20 mg | mouth every morning | | | 17 | 0 | | TBEC | (before breakfast). | | | | | + + + +---------+ + + documented as of this encounter Plan of Treatment Not on filedocumented as of this encounter Procedures + +--------+ + + + | Procedure Name | Priori | Date/Time | Associated Diagnosis | Comments | | | ty | | | | + +--------+ + + + | US OB < 14 WEEKS | Routin | 10/28/2019 | with 3 | Results for this | | SINGLE OR FIRST | e | 3:14 PM | completed weeks | procedure are in the | | GESTATION | | PST | gestation | results section. | + +--------+ + + + documented in this encounter Results US OB < 14 Weeks Singl or First Gestatio (10/28/2019 3:14 PM PST) + + | Specimen | + + | | + + + + + | Impressions | Performed At | + + + | Single living intrauterine gestation. The estimated gestational age | [facility] | | based on the crown-rump length is 7 weeks 2 days. No complicating | | | features. Transcribed by: at 10/28/2019 5:07 PM | | | at | | | workstation [id number] | | + + + + + + | Narrative | Performed At | + + + | PROCEDURE: ULTRASOUND OBSTETRICAL FIRST TRIMESTER | [facility] | | INDICATIONS: Dates COMPARISON: None EGA by OTHER: 7 weeks 6 | | | days FINDINGS: BIOMETRY CROWN RUMP: 11.69 mm ; 7 weeks, 2 | | | days AVG EGA: 7 weeks, 2 days; TA by US: 06/13/2020 SONOGRAPHIC | | | ASSESSMENT TYPE OF GESTATION: Single PLACENTAL LOCATION: | | | Circumferential PLACENTAL CORD INSERTION: Not seen | | | STRUCTURES GESTATIONAL SAC: Normal DECIDUAL REACTION: Normal YOLK | | | SAC: Normal; 3.0 mm CARDIAC ACTIVITY: Normal HEART RATE: 152 | | | bpm MATERNAL STRUCTURES RIGHT KIDNEY: Normal; LEFT KIDNEY: | | | Normal UTERUS: Normal; ADNEXA: Normal | | + + + + + | Procedure Note | + + | Jose Doherty Results In - 10/28/2019 5:33 PM PST PROCEDURE: ULTRASOUND OBSTETRICAL FIRST | | TRIMESTERINDICATIONS: DatesCOMPARISON: NoneEGA by OTHER: 7 weeks 6 | | daysFINDINGS:BIOMETRYCROWN RUMP: 11.69 mm ; 7 weeks, 2 daysAVG EGA: 7 weeks, 2 days; TA | | by US: 06/13/2020SONOGRAPHIC ASSESSMENTTYPE OF GESTATION: SinglePLACENTAL LOCATION: | | CircumferentialPLACENTAL CORD INSERTION: Not seenFETAL STRUCTURESGESTATIONAL SAC: | | NormalDECIDUAL REACTION: NormalYOLK SAC: Normal; 3.0 mm CARDIAC ACTIVITY: | | NormalHEART RATE: 152 bpm MATERNAL STRUCTURESRIGHT KIDNEY: Normal; LEFT KIDNEY: Normal | | UTERUS: Normal; ADNEXA: NormalIMPRESSION: Single living intrauterine gestation. The | | estimated gestational age based on the crown-rump length is 7 weeks 2 days. No | | complicating features.Transcribed by: at 10/28/2019 5:07 PM at workstation [id number] | |BIOMETRY | |CROWN RUMP: 11.69 mm ; 7 weeks, 2 days | |AVG EGA: 7 weeks, 2 days; TA by US: 06/13/2020 | | | |SONOGRAPHIC ASSESSMENT | |TYPE OF GESTATION: Single | |PLACENTAL LOCATION: Circumferential | |PLACENTAL CORD INSERTION: Not seen | | | | STRUCTURES | |GESTATIONAL SAC: Normal | |DECIDUAL REACTION: Normal | |YOLK SAC: Normal; 3.0 mm | | CARDIAC ACTIVITY: Normal | |HEART RATE: 152 bpm | | | |MATERNAL STRUCTURES | |RIGHT KIDNEY: Normal; LEFT KIDNEY: Normal | |UTERUS: Normal; ADNEXA: Normal | |IMPRESSION: | |Single living intrauterine gestation. The estimated gestational age based on the crown-rump length is 7 weeks 2 days. No complicating features. | | | |Transcribed by: at 10/28/2019 5:07 PM | | | | at workstation [id number] | + + + +---------+ + + | Performing | Address | City/State/Zipcode | Phone Number | | Organization | | | | + +---------+ + + | [facility] | | | | + +---------+ + + documented in this encounter Visit Diagnoses + + | Diagnosis | + + | with 3 completed weeks gestation | + + documented in this encounter"
--- OUTSIDE RECORDS SUMMARY | ~2020-06-11 | XMS | Encounter Summary ---
Demographics + + + | Address | [address] | | | [place] [address] | + + + | Home Phone | | + + + | Preferred Language | Unknown | + + + | Marital Status | Single | + + + | Zoroastrianism Affiliation | Unknown | + + + | Race | Unknown | + + + | Ethnic Group | Unknown | + + + Author + + + | Author | [facility] | | | and Shayanana | + + + | Organization | [facility] | | | [...] Team Providers + +------+ + | Care Bank President Name | Role | Phone | + [...] + + | Closed | Specialty | Otolaryngolog | Diagnoses | Justin, | Mani Lopez | | | Services | y | Abnormal | Ila Garcia MD [address] | | | Required | | nasal septum | TRANSMISSION SPECIALIST [address] | [address] | | | | | | [place] | [place] | | | | | | [place], | [place], [place] | | | | | | [place] [address] | [address] | | | | | | Phone: | Phone: | | | | | | [phone] | [phone] | | | | | | Fax: | Fax: | | | | | | [phone] | [phone] | +--------+ + + + + + Reason for Visit + + + | Reason | Comments | + + + | Menstrual Issues | getting 2 periods a month X 5 months | + + + | Other | would like a referral for ongoing nose pain | + + + Encounter Details +--------+---------+ + + + | Date | Type | Department | Care Team | Description | +--------+---------+ + + + | 03/28/ | Office | [facility] | Radha Anderson, | Abnormal vaginal | | 2016 | Visit | [facility] | TRANSMISSION SPECIALIST [address] [facility] | bleeding (Primary | | | | [place] [facility] | [address] [place] | Dx); Abnormal nasal | | | | CARE [address] | [id number] | septum | | | | [address] [place], [place] | | | | | | [address] | | | | | | [phone] | | | +--------+---------+ + + + Social History + +-------+ +--------+------+ | Tobacco Use | Types | Packs/Day | Years | Date | | | | | Used | | + +-------+ +--------+------+ | Never Smoker | | | | | + +-------+ +--------+------+ + + | Tobacco Cessation: Counseling Given: No | + + + + +---------+ + | Alcohol Use [...] + + + | Blood Pressure | 104/60 | 03/28/2017 9:22 AM | | | | | PDT | | + + + + + | Pulse | 78 | 03/28/2017 9:22 AM | | | | | PDT | | + + + + + | Temperature | - | - | | + + + + + | Respiratory Rate | 16 | 03/28/2017 9:22 AM | | | | | PDT | | + + + + + | Oxygen Saturation | 100% | 03/28/2017 9:22 AM | | | | | PDT | | + + + + + | Inhaled Oxygen | - | - | | | Concentration | | | | + + + + + | Weight | 63.8 kg (140 lb 9.6 | 03/28/2017 9:22 AM | | | | oz) | PDT | | + + + + + | Height | 165.1 cm (5' 5") | 03/28/2017 9:22 AM | | | | | PDT | | + + + + + | Body Mass Index | 23.4 | 03/28/2017 9:22 AM | | | | | PDT | | + + + + + documented in this encounter Patient Instructions Patient Instructions Radha AndersonferKADE - 03/28/2017 9:15 AM PDT Dysfunctional Uterine Bleeding Dysfunctional uterine bleeding is a condition in which bleeding is abnormaland occurs at unexpected times of the month. This happens because of changes in the hormones that help con trol a woman s menstrual cycle each month. The bleeding may be heavier or beekeeper farmer than normal. If you have heavy bleeding often, this can lead to a problem called anemia.With anemia, your red blood cell count is too low. Red blood cells are needed because they help carry oxygen throughout your body.Severe anemia may cause you to look pale and feel very weak or tired. You might also become short of breat h easily. To treat dysfunctional uterine bleeding, medicines are often tried first. If these don t help, further testing and treatments may be needed. Discuss all of your options with your pr ovider. Home care Medicines If you re prescribed medicines, be sure to take them as directed. Some of the more common medicines you may be prescribed include: Hormone therapy (Options include most methods of hormonal control such as pills, s hots, or a hormone-releasing IUD) Nonsteroidal anti-inflammatory drugs (NSAIDs), such as ibuprofen Iron supplements, if you have anemia General care Get plenty of rest if you tire easily. Avoid heavy exertion. To help relieve pain or cramping that may occur with bleeding, try using a heating pad o n the lower belly or back. A warm bath may also help. Follow-up care Follow up with your healthcare provider as directed. When to seek medical advice Call your healthcare provider right away if: Bleeding becomes heavy (soaking 1 pad or tampon every hour for 3 hours) Increased abdominal pain Irregular bleeding worsens or does not get better even with treatment Fever of 100.4F (38C) or higher, or as directed by your provider Signs of anemia, such as pale skin, extreme fatigue or weakness, or shortness of breath Dizziness or fainting Date Last Reviewed: 04/16/[id number] [employer]. [address] [place] [address], [place] [address]. All [facility] ts reserved. This information is not intended as a substitute for professional medical care. Always follow your healthcare professional's instructions. documented in this encounter Progress Notes Radha Anderson FNP - 03/28/2017 9:15 AM PDTFormatting of this note might be different f rom the original. History: Kerri Alejandra is a 26 y.o. female Chief Complaint: abnormal periods HPI Kerri has had "years"pain sinus teeth, nasal bone pain, and she knows she has nasal polyps a nd a deviated septum. However, the pain and sinus issues is getting worse and burning pain s hoots through her nose and she can barely breathe at night. 26 year old female has irregular has had 2 periods a month for 5 months. She denies abdomin al pain, cramping, or GI issues. Denies vaginal discharge or painful intercourse. Denies new diet, weight loss, or stressors. She has been on this OCP x 2 years and has not missed one. Patient Active Problem List Diagnosis Deviated nasal septum Anxiety Medications Outpatient Medications Prior to Visit Medication Sig Dispense Refill citalopram (CELEXA) 10 mg tablet 1 tablet daily 30 tablet 3 VALERIA-28 0.15-30 MG-MCG per tablet 12 No facility-administered medications prior to visit. Review of Systems Review of Systems Constitutional: Negative. HENT: Positive for congestion, dental problem, postnasal drip, rhinorrhea and sinus pressur e. She states she is mouth breather due to her ongoing nasal sinus issues Eyes: Negative. Respiratory: Negative. Cardiovascular: Negative. Gastrointestinal: Negative. Genitourinary: Positive for menstrual problem. Negative for decreased urine volume, dyspare unia, dysuria, enuresis, hematuria, pelvic pain, urgency, vaginal bleeding, vaginal discharg e and vaginal pain. Musculoskeletal: Negative. Neurological: Negative. Denies dizziness , fast HR, sweating or syncope Hematological: Negative. Psychiatric/Behavioral: Negative. Physical Examination: Physical Exam Constitutional: She is oriented to person, place, and time. She appears well-developed and well-nourished. HENT: Right Ear: External ear normal. Left Ear: External ear normal. Eyes: Conjunctivae and EOM are normal. Pupils are equal, round, and reactive to light. Neck: Normal range of motion. Neck supple. Cardiovascular: Normal rate and normal heart sounds. Pulmonary/Chest: Effort normal and breath sounds normal. Abdominal: Soft. Bowel sounds are normal. She exhibits no distension. There is no tendernes s. There is no rebound and no guarding. Genitourinary: Genitourinary Comments: Recent normal pap Musculoskeletal: Normal range of motion. Neurological: She is alert and oriented to person, place, and time. Skin: Skin is warm and dry. No rash noted. No pallor. Psychiatric: She has a normal mood and affect. Her behavior is normal. Judgment and thought content normal. Vitals reviewed. Recent Results (from the past 24 hour(s)) POCT Urinalysis Dipstick Non-Automated Result Value Ref Range Color, UA, POC Light Yellow Yellow, Light Yellow Clarity, UA, POC Clear Glucose, UA, POC Negative Negative Bilirubin, UA, POC Negative Negative Ketones, UA, POC Negative Negative, 100 mg/dL Specific [place], UA, POC 1.000 (A) 1.001 - 1.030 Blood, UA, POC Negative Negative pH, UA, POC 8.0 5.0, 6.0, 7.0, 8.0, 5.5, 6.5, 7.5 Protein, UA, POC Negative Negative Urobilinogen, UA, POC Negative 0.2, Negative, Normal, < 0.2 mg/dL, 1 mg/dL, < 0.2 E.U./dl, 1.0 E.U./dL, 0.2 mg/dL Nitrite, UA, POC Negative Negative Leukocyte Esterase, UA, POC Negative Negative POCT Test, Urine, QUAL Result Value Ref Range Test, Urine, POC Negative Negative Internal QC Acceptable Acceptable Specific [place], POC 1.010, 1.015, 1.020, 1.025 Lot Number Expiration Date Assessment/Plan: ICD-10-CM ICD-9-CM 1. Abnormal vaginal bleeding N93.9 623.8 POCT Test, Urine, QUAL POCT Urinalysis Dipstick Non-Automated 2. Abnormal nasal septum Q30.9 748.1 Ambulatory referral to ENT Discharge Medications Accurate as of 03/28/17 10:27. If you have any questions, ask your nurse or doctor. New Medications Details drospirenone-ethinyl estradiol 3-0.03 mg per tablet Started by: KADE Russell Take 1 tablet by mouth Daily. aka: LUCIE Unchanged Medications Details citalopram 10 mg tablet 1 tablet daily aka: CELEXA PLAN: Change pill to Lucie -Start tomorrow. Will let us know if bleeding subsides. Will use back up method x 1 month. Referred to ENT for sinus/nasal issues. She has tried Flonase and numerous allergy medicati ons without relief. Radha BRAUN documented in this encounter Plan of Treatment + + +--------+ + + | Name | Type | Priori | Associated Diagnoses | Order Schedule | | | | ty | | | + + +--------+ + + | Ambulatory referral | Outpatient | Routin | Abnormal nasal | Ordered: 03/28/2017 | | to ENT | Referral | e | septum | | + + +--------+ + + documented as of this encounter Procedures + +--------+ + + + | Procedure Name | Priori | Date/Time | Associated Diagnosis | Comments | | | ty | | | | + +--------+ + + + | POCT TEST, | Routin | 03/28/2017 | Abnormal vaginal | Results for this | | URINE, QUAL | e | 9:33 AM | bleeding | procedure are in the | | | | PDT | | results section. | + +--------+ + + + | POCT URINALYSIS | Routin | 03/28/2017 | Abnormal vaginal | Results for this | | DIPSTICK | e | 9:31 AM | bleeding | procedure are in the | | | | PDT | | results section. | + +--------+ + + + documented in this encounter Results POCT Test, Urine, QUAL (03/28/2017 9:33 AM PDT) + + + + + [...] | 1.010, 1.015, | | | | [place], | | 1.020, 1.025 | | | [...] + + | Urine | + + POCT Urinalysis Dipstick Non-Automated (03/28/2017 9:31 AM PDT) + + + + + + | Component | Value | Ref Range | Performed | Pathologist | | | | | At | Signature | + + + + + + | Color, UA, | Light Yellow | Yellow, Light | | | [...] + + + + | Specific | 1.000 (A) | 1.001 - 1.030 | | | | [place], | | | | | | UA, POC | | | | | + + + + + + | Blood, UA, | Negative | Negative | | | | POC | | | | | + + + + + + | pH, UA, POC | 8.0 | 5.0, 6.0, 7.0, | | | [...] + | Diagnosis | + + | Abnormal vaginal bleeding - Primary Other specified noninflammatory disorder of | | vagina | + + | Abnormal nasal septum | + + documented in this encounter
--- OUTSIDE RECORDS SUMMARY | ~2020-06-11 | XMS | Clinical Summary ---
Demographics + + + | Address | [address] | | | [place] [address] | + + + | Home Phone | | + + + | Preferred Language | Unknown | + + + | Marital Status | Single | + + + | Gnosticism Affiliation | Unknown | + + + | Race | Unknown | + + + | Ethnic Group | Unknown | + + + Author + + + | Author | [facility] | | | and Shayanana | + + + | Organization | [facility] | | | [...] Team Providers + +------+ + | Care Skills Instructor Name | Role | Phone | + +------+ + | Minda Woods | PCP | | | PA-C | | | + +------+ + Allergies No Known Allergies Medications + + + +---------+------+------+-------+ | Medication | Sig | Dispensed | Refills | Star | End | Statu | | | | | | t | Date | s | | | | | | Date | | | + + + +---------+------+------+-------+ | 27-0.8 mg | Take 1 tablet by | | 0 | | | Activ | | multivitamin tablet | mouthDaily | | | | | e | + + + +---------+------+------+-------+ | Calcium | Take 500 mg by mouth | | 0 | | | Activ | | Polycarbophil | 2 times daily | | | | | e | | (FIBER-CAPS PO) | | | | | | | + + + +---------+------+------+-------+ Active Problems + + + | Problem | Noted Date | + + + | 32 weeks gestation of | 04/22/2020 | + + + + + | Overview: [facility] in [place] | + + + + + | Anxiety | 08/23/2016 | + + + | Deviated nasal septum | 08/27/2015 | + + + + + + + | | Estimated Date of Delivery | Comments | + + + + | Yes | 06/13/2020 | | + + + + Encounters +--------+ + + + + | Date | Type | Specialty | Care Team | Description | +--------+ + + + + | 04/22/ | Initial | Primary Care | Kimberly Lopez | GA: 32w4d | | 2020 | | | MD Marian | | +--------+ + + + + from Last 3 Months Immunizations + + + + | Name | Administration Dates | Next Due | + + + + | HEP A, 2 DOSE | 08/07/2008, 11/07/2007 | | | (PED/ADOL) | | | + + + + | HPV, QUADRIVALENT, 3 | 08/05/2008, 04/06/2008, 03/06/2008 | | | DOSE (ADOL/ADULT) | | | + + + + | INFLUENZA PF | 10/25/2019 | | | TRIVALENT(PED/ADOL/A | | | | MAYRA JACOBSON | | | + + + + | TDAP, (ADOL/ADULT) | 04/03/2020, 08/05/2008, 11/07/2007 | | + + + + Family History + + +------+ + | Medical History | Relation | Name | Comments | + + +------+ + | Breast cancer | Other | | Fam Hx | + + +------+ + + +------+--------+ + | Relation | Name | Status | Comments | + +------+--------+ + | Other | | | | + +------+--------+ + Social History + +-------+ +--------+------+ | [...] + + +---------+ + + + + + | | Estimated Date of Delivery | Comments | + + + + | Yes | 06/13/2020 | | + + + + + + + | Sex Assigned at | Date Recorded | | | | + + + | Not on file | | + + + Last Filed Vital Signs + + + [...] | | + + + + + Plan of Treatment + + + + + | Health Maintenance | Due Date | Last | Comments | | | | Done | | + + + + + | Hepatitis C | | | | | Screening | 2 | | | + + + + + | Primary Care | | 09/20/20 | | | Outreach (Moderate | 8 | 17, | | | Risk) | | 03/28/20 | | | | | 17, | | | | | 01/26/20 | | | | | 17, | | | | | Addition | | | | | al | | | | | history | | | | | exists | | + + + + + | Cervical Cancer | | 01/11/20 | | | Screening (Pap) | 0 | 17, | | | | | 01/07/20 | | | | | 16, | | | | | 01/07/20 | | | | | 16, | | | | | Addition | | | | | al | | | | | history | | | | | exists | | + + + + + | Vaccine: Influenza | | 10/25/20 | | | (#1) | 0 | 19 | | + + + + + | Vaccine: | | 04/03/20 | | | Dtap/Tdap/Td (4 - | 0 | 20, | | | Td) | | 08/05/20 | | | | | 08, | | | | | 11/07/19 | | | | | 08 | | + + + + + Procedures + +--------+ + + + | [...] section. | + +--------+ + + + from Last 3 Months Results POCT Urinalysis Dipstick Non-Automated (04/22/2020 9:35 [...] 1.001 - 1.030 | | | | [place], | | | | | | UA, [...] + + | Urine | + + from Last 3 Months Insurance +-------+--------+ +--------+ + +------+ | Payer | Benefi | Subscriber | Effect | Phone | Address | Type | | | t Plan | ID | reyes | | | | | | / | | Dates | | | | | | Group | | | | | | +-------+--------+ +--------+ + +------+ | MOD[employer] | MOD[employer] | [id number] | 11/06/19 | [phone] | [address] | PPO | | | [employer] | | 19-Pre | 9 | [id number] | | | | [place] | | sent | | [place], | | | | [place] | | | | [place] [address] | | +-------+--------+ +--------+ + +------+ | AETNA | AETNA | [id number] | 11/06/19 | | | PPO | | | PPO | | 17-Pre | | | | | | | | sent | | | | +-------+--------+ +--------+ + +------+ Advance Directives + + + + + | Type | Date Recorded | Patient | Explanation | | | | Band Sawing Machine Operator | | + + + + + | Power of | | | | | Weigh Boss | | | | + + + + + | Power of | | | | | Weigh Boss | | | | + + + + + | Advance | | | | | Directive | | | | + + + + + | Advance | | | | | Directive | | | | + + + + + + + + + + | Code Status | Date | Date | Comments | | | Activated | Inactivated | | + + + + + | Full Code | 05/17/2017 | 05/17/2017 | | | | 10:41 AM | 1:54 PM | | + + + + +
--- OUTSIDE RECORDS SUMMARY | ~2020-06-11 | XMS | Encounter Summary ---
Demographics + + + | Address | [address] | | | [place] [address] | + + + | Home Phone | | + + + | Preferred Language | Unknown | + + + | Marital Status | Single | + + + | Religion Affiliation | Unknown | + + + | Race | Unknown | + + + | Ethnic Group | Unknown | + + + Author + + + | Author | [facility] | | | and Shayanana | + + + | Organization | [facility] | | | and [...] Team Providers + +------+ + | Care Courtesy Driver Name | Role | Phone | + +------+ + | Layne Mccurdy MD | PCP | | + +------+ + Reason for Visit + +--------+ + | Reason | Onset | Comments | | | Date | | + +--------+ + | Medication Refill | 11/20/ | | | | 2018 | | + +--------+ + Encounter Details +--------+--------+ + + + | Date | Type | Department | Care Team | Description | +--------+--------+ + + + | 11/20/ | Refill | [facility] | Layne Mccurdy | Medication Refill | | 2018 | | [facility] | [address] | | | | | [place] [facility] [address] | | | | | [address] | [place] [address] | | | | | [address] [place], [place] | [phone] | | | | | [address] | | | | | | [phone] | | | +--------+--------+ + + + [...] this encounter Miscellaneous Notes Telephone Encounter - Rowan Echeverria CC CMA - 11/20/2017 12:06 PM PSTLast filled 10/12/17 and last seen on 09/20/17 12:0 7 PM PSTdocumented in this encounter Plan of Treatment Not on filedocumented as of this encounter Visit Diagnoses Not on filedocumented in this encounter"
--- OUTSIDE RECORDS SUMMARY | ~2020-06-11 | XMS | Encounter Summary ---
Demographics + + + | Address | [address] | | | [place] [address] | + + + | Home Phone | | + + + | Preferred Language | Unknown | + + + | Marital Status | Single | + + + | Sikhism Affiliation | Unknown | + + + | Race | Unknown | + + + | Ethnic Group | Unknown | + + + Author + + + | Author | [facility] | | | and Shayanana | + + + | Organization | [facility] | | | [...] Team Providers + +------+ + | Care Party Plan Sales Director Name | Role | Phone | + +------+ + | Layne Mccurdy MD | PCP | | + +------+ + Encounter Details +--------+ + + + + | Date | Type | Department | Care Team | Description | +--------+ + + + + | 07/31/ | Hospital | [facility] | Mani Lopez MD | | | 2017 | Encounter | [facility] [address] | [address] [place] | | | | | [address] [place] | [place], [place] | | | | | [place], [place] | [address] | | | | | [address] | [phone] | | | | | [phone] | | | +--------+ + + + [...] tablet daily | 30 | 3 | 06/19/20 | | | (CELEXA) 10 mg | | tablet | | 17 | 8 | | tablet | | | | [...]
--- OUTSIDE RECORDS SUMMARY | ~2020-06-11 | XMS | Encounter Summary ---
Demographics + + + | Address | [address] | | | [place] [address] | + + + | Home Phone | | + + + | Preferred Language | Unknown | + + + | Marital Status | Single | + + + | Jewish Affiliation | Unknown | + + + | Race | Unknown | + + + | Ethnic Group | Unknown | + + + Author + + + | Author | [facility] | | | and Shayanana | + + + | Organization | [facility] | | | and [...] Team Providers + +------+ + | Care Compensation Analyst Name | Role | Phone | + [...] Description | +--------+--------+ + + + | 04/12/ | Refill | [facility] | JustinRadha, | Medication Refill | | 2018 | | [facility] | [address] | | | | | [place] [facility] | [address] [place], [place] | | | | | [address] | [address] | | | | | [address] [place], [place] | | | | | | [address] | | | | | | [phone] | | | +--------+--------+ + + + [...]
--- OUTSIDE RECORDS SUMMARY | ~2020-06-11 | XMS | Encounter Summary ---
Demographics + + + | Address | [address] | | | [place] [address] | + + + | Home Phone | | + + + | Preferred Language | Unknown | + + + | Marital Status | Single | + + + | Sabianist Affiliation | Unknown | + + + | Race | Unknown | + + + | Ethnic Group | Unknown | + + + Author + + + | Author | [facility] | | | and Shayanana | + + + | Organization | [facility] | | | [...] Team Providers + +------+ + | Care Professor In Family Studies Name | Role | Phone | + +------+ + | Layne Mccurdy MD | PCP | | + +------+ + Reason for Visit + + + | Reason | Comments | + + + | Wrist Pain | X 3 weeks | + + + Encounter Details +--------+---------+ + + + | Date | Type | Department | Care Team | Description | +--------+---------+ + + + | 06/22/ | Office | [facility] | Shima Vega, FRANKIE | Right wrist | | 2016 | Visit | [facility] | [address], | tendonitis (Primary | | | | [place] [facility] | [place] [address] | Dx); Generalized | | | | [address] | [phone] | anxiety disorder | | | | [address] [place], [place] | | | | | | [address] | | | | | | [phone] | | | +--------+---------+ + + + [...] + + + | Blood Pressure | 120/78 | 06/22/2016 3:38 PM | | | | | PDT | | + + + + + | Pulse | 66 | 06/22/2016 3:38 PM | | | | | PDT | | + + + + + | Temperature | - | - | | + + + + + | Respiratory Rate | 16 | 06/22/2016 3:38 PM | | | | | PDT | | + + + + + | Oxygen Saturation | - | - | | + + + + + | Inhaled Oxygen | - | - | | | Concentration | | | | + + + + + | Weight | 64.7 kg (142 lb 9.6 | 06/22/2016 3:38 PM | | | | oz) | PDT | | + + + + + | Height | 165.1 cm (5' 5") | 06/22/2016 3:38 PM | | | | | PDT | | + + + + + | Body Mass Index | 23.73 | 06/22/2016 3:38 PM | | | | | PDT | | + + + + + documented in this encounter Progress Notes Shima Vega, FRANKIE - 06/22/2016 5:53 PM PDT Chief Complaint: Chief Complaint Patient presents with Wrist Pain X 3 weeks History of Present Illness: SOLOMON Manning comes in with complaint of right wrist pain for the past three weeks. Seems to come a nd go and hurt in various locations about the wrist. She did not have any trauma to the wri st. No swelling or redness of the wrist. No numbness or tingling in her fingers. Hurts so me when she lifts things. She had fallen to sleep one night with a "bangle" on her wrist an d it seemed to hurt the next day. She bought a wrist splint and that seems to help some. She is also wondering about having a refill of the Celexa she was on earlier this year. It really seemed to help her anxiety a lot. Review of Systems: Review of Systems Constitutional: Negative for fever and chills. Musculoskeletal: Negative for joint swelling. Skin: Negative for rash. Neurological: Negative for weakness and numbness. Allergies: No Known Allergies Meds: Current Outpatient Prescriptions Medication Sig citalopram (CELEXA) 10 mg tablet 1/2 tablet daily for a week then one daily VALERIA-28 0.15-30 MG-MCG per tablet No current facility-administered medications for this visit. Exam: Filed Vitals: 06/22/16 1538 BP: 120/78 Pulse: 66 Resp: 16 Height: 1.651 m (5' 5") Weight: 64.683 kg (142 lb 9.6 oz) Physical Exam Constitutional: She is oriented to person, place, and time. She appears well-developed and well-nourished. No distress. HENT: Head: Normocephalic. Eyes: Pupils are equal, round, and reactive to light. Pulmonary/Chest: Effort normal. Musculoskeletal: Right wrist is without deformity, edema, or erythema of the joint. Normal full ROM is note d without discomfort. Resisted abduction of the wrist causes a little bit of discomfort lat erally. Normal sensation of the fingers and normal strength in the hand. No pain in the el bow to palpation. Rotation of the wrist causes minimal discomfort in the volar aspect of th e wrist. No heat or swelling of the joint noted. Neurological: She is alert and oriented to person, place, and time. Skin: Skin is warm and dry. No rash noted. Psychiatric: Her mood appears anxious (mild). Vitals reviewed. Assessment: 1. Right wrist tendonitis 2. Generalized anxiety disorder Plan: Will have her use Aleve two times per day and ice or heat to the area. Avoid repetitive ac tivities that aggravate it. Follow-up if not better--may consider PT. No need for imaging at present. Will restart the Celexa 10mg 1/2 tab daily for a week then one daily. Follow up for worsening or lack of improvement. She is also wondering about the referral to Dr. Vernon from last winter. They apparently h ad tried to contact her but the number may have not been good. Re-sent the information to [facility] and they will contact her on her cell. documented in this enco unter Plan of Treatment Not on filedocumented as of this encounter Visit Diagnoses + + | Diagnosis | + + | Right wrist tendonitis - Primary | + + | Generalized anxiety disorder | + + documented in this encounter
--- OUTSIDE RECORDS SUMMARY | ~2020-06-11 | XMS | Encounter Summary ---
Demographics + + + | Address | [address] | | | [place] [address] | + + + | Home Phone | | + + + | Preferred Language | Unknown | + + + | Marital Status | Single | + + + | Druze Affiliation | Unknown | + + + | Race | Unknown | + + + | Ethnic Group | Unknown | + + + Author + + + | Author | [facility] | | | and Shayanana | + + + | Organization | [facility] | | | [...] Team Providers + +------+ + | Care Properties Supervisor Name | Role | Phone | + +------+ + | Layne Mccurdy MD | PCP | | + +------+ + Encounter Details +--------+ + + + + | Date | Type | Department | Care Team | Description | +--------+ + + + + | 10/03/ | Abstract | [facility] | Layne Mccurdy | | | 2017 | | [facility] | [address] | | | | | [place] [facility] | [address] | | | | | [address] | [place] [address] | | | | | [address] [place], [place] | [phone] | | | | | [address] | | | | | | [phone] | | | +--------+ + + + [...] | + +--------+ + + + | EXTERNAL LAB: [facility] | Routin | 01/07/2016 | | Results for this | | SMEAR | e | | | procedure are in the | | | | | | results section. | + +--------+ + + + | EXTERNAL LAB: [facility] Routin | 03/03/2015 | | Results for this | | SMEAR | e | | | procedure are in the | | | | | | results section. | + +--------+ + + + | EXTERNAL LAB: [facility] | Routin | 11/25/2010 | | Results for this | | SMEAR | e | | | procedure are in the | | | | | | results section. | + +--------+ + + + documented in this encounter Results External Lab: PAP Smear (01/07/2016) + + + + + + | Component | Value | Ref Range | Performed | Pathologist | | | | | At | Signature | + + + + + + | Pap Smear, | No evidence of | | | | | External | intraepithelial lesion | | | | | | or malignancyComment: | | | | | | fungal organisms | | | | | | morphologically | | | | | | consistent with Cait | | | | | | spp | | | | + + + + + + External Lab: PAP Smear (03/03/2015) + + + + + + | Component | Value | Ref Range | Performed | Pathologist | | | | | At | Signature | + + + + + + | Pap Smear, | Atypical squamous cells | | | | | External | of undetermined | | | | | | significanceComment: HPV | | | | | | Positive, squamous; | | | | | | fungal organisms like | | | | | | Cait spp | | | | + + + + + + External Lab: PAP Smear (11/25/2010) + + + + + + | Component | Value | Ref Range | Performed | Pathologist | | | | | At | Signature | + + + + + + | Pap Smear, | No evidence of | | | | | External | intraepithelial lesion | | | | | | or malignancy | | | | + + + + + + documented in this encounter Visit Diagnoses Not on filedocumented in this encounter"
--- OUTSIDE RECORDS SUMMARY | ~2020-06-11 | XMS | Encounter Summary ---
Demographics + + + | Address | [address] | | | [place] [address] | + + + | Home Phone | | + + + | Preferred Language | Unknown | + + + | Marital Status | Single | + + + | Taoism Affiliation | Unknown | + + + | Race | Unknown | + + + | Ethnic Group | Unknown | + + + Author + + + | Author | [facility] | | | and Shayanana | + + + | Organization | [facility] | | | and [...] Team Providers + +------+ + | Care Naphthalene Operator Helper Name | Role | Phone | + +------+ + | Layne Mccurdy MD | PCP | | + +------+ + Reason for Visit +--------+ + | Reason | Comments | +--------+ + | Other | x2 weeks, heartburn, abnormal cramping in her sides, up under her | | | ribs, lower back pain, 4 days late, but began spotting this | | | morning; sexually active; neg at-home preg tests; never has been | | | late before | +--------+ + Encounter Details +--------+---------+ + + + | Date | Type | Department | Care Team | Description | +--------+---------+ + + + | 09/20/ | Office | [facility] | Radha Anderson, | Crampy pain | | 2017 | Visit | [facility] | TRANSFER OPERATOR [address] [facility] | associated with | | | | [facility] [facility] | [place], [place] | mensleslie (Primary Dx); | | | | [address] | [address] | Gastroesophageal | | | | [address] [employer] [place], [place] | | reflux disease, | | | | [address] | | esophagitis presence | | | | [phone] | | not specified; | | | | | | Lower abdominal | | | | | | pain; Irregular | | | | | | periods/menstrual | | | | | | cycles | +--------+---------+ + + + Social History [...] + + + | Blood Pressure | 108/70 | 09/20/2017 8:29 AM | | | | | PST | | + + + + + | Pulse | 64 | 09/20/2017 8:29 AM | | | | | PST | | + + + + + | Temperature | - | - | | + + + + + | Respiratory Rate | 16 | 09/20/2017 8:29 AM | | | | | PST | | + + + + + | Oxygen Saturation | 99% | 09/20/2017 8:29 AM | | | | | PST | | + + + + + | Inhaled Oxygen | - | - | | | Concentration | | | | + + + + + | Weight | 64.2 kg (141 lb 9.6 | 09/20/2017 8:29 AM | | | | oz) | PST | | + + + + + | Height | 165.1 cm (5' 5") | 09/20/2017 8:29 AM | | | | | PST | | + + + + + | Body Mass Index | 23.56 | 09/20/2017 8:29 AM | | | | | PST | | + + + + + documented in this encounter Patient Instructions Patient Instructions Radha Anderson FNP - 09/20/2017 8:30 AM PST Discharge Instructions for Gastroesophageal Reflux Disease (GERD) Gastroesophageal reflux disease (GERD) is a backflow of acid from the stomach into the swal lowing tube (esophagus). Home care These home care steps can help you manage GERD: Maintain a healthy weight. Get help to lose any extra pounds. Avoid lying down after meals. Avoid eating late at night. Elevate the head of your bed by 6 inches. You can do this by placing wooden blocks or be d risers under the head of your bed. Avoid wearing tight-fitting clothes. Avoid foods that might irritate your stomach, such as the following: Alcohol Fat Chocolate Caffeine Spearmint or peppermint Talk to your healthcare provider if you are taking any of the following medicines. These medicines can make GERD symptoms worse: Calcium channel blockers Theophylline Anticholinergic medicines, such as oxybutynin and benzatropine Begin an exercise program. Ask your healthcare provider how to get started. You can bene fit from simple activities, such as walking or gardening. Break the smoking habit. Enroll in a stop-smoking program to improve your chances of suc cess. Limit alcohol intake to no more than 2 drinks a day. Take your medicines exactly as directed. Don t skip doses. Avoid duib-bnn-ckcooyb nonsteroidal anti-inflammatory medicines, such as aspirin and ibu profen, unless recommended by your healthcare provider for certain conditions. If possible, avoid nitrates (heart medicines, such as nitroglycerin and isosorbide dinit rate). Follow-up care Make a follow-up appointment as directed by our staff. When to call the healthcare provider Call your healthcare provider immediately if you have any of the following: Trouble swallowing Pain when swallowing Feeling of food caught in your chest or throat Pain in the neck, chest, or back Heartburn that causes you to vomit Vomiting blood Black or tarry stools (from digested blood) More saliva (watering of the mouth) than usual Weight loss of more than 3% to 5%of your total body weight in a month Hoarseness or sore throat that won t go away Choking, coughing, or wheezing Date Last Reviewed: 05/06/201619998837-5497 [employer]. [address] [place] [address]. All righ ts reserved. This information is not intended as a substitute for professional medical care. Always follow your healthcare professional's instructions. documented in this encounter Progress Notes Radha Anderson FNP - 09/20/2017 8:30 AM PSTFormatting of this note might be different f rom the original. History: Kerri Alejandra is a 27 y.o. female Chief Complaint: Other (x2 weeks, heartburn, abnormal cramping in her sides, up under her r ibs, lower back pain, 4 days late, but began spotting this morning; sexually active; neg at- home preg tests; never has been late before) HPI Kerri developed epigastric pain 2.5 weeks ago with nausea and burning in stomach. She notice d she was 4 days late on he period and thought she should be checked. She is on the co ntrol pill and does not miss it and takes it at same time every day. She has lower back pain with chills and dizziness. 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 No vaginal discharge -just started spotting this AM and thinks it c ould be her Patient Active Problem List Diagnosis Deviated nasal septum Anxiety Medications Outpatient Medications Prior to Visit Medication Sig Dispense Refill citalopram (CELEXA) 10 mg tablet 1 tablet daily 30 tablet 3 drospirenone-ethinyl estradiol (XOCHILT) 3-0.03 mg per tablet Take 1 tablet by mouth Jessica ly. 30 tablet 11 No facility-administered medications prior to visit. Review of Systems Review of Systems Constitutional: Positive for chills. Negative for activity change, appetite change, fatigue and fever. HENT: Negative. Eyes: Negative. Respiratory: Negative. Cardiovascular: Negative. Gastrointestinal: Negative. Endocrine: Negative. Genitourinary: Negative. Musculoskeletal: Negative. Skin: Negative. Allergic/Immunologic: Negative. Neurological: Negative. Hematological: Negative. Negative for adenopathy. Psychiatric/Behavioral: Negative. High stress Physical Examination: Ht 1.651 m (5' 5") | Wt 64.2 kg (141 lb 9.6 oz) | BMI 23.56 kg/m Physical Exam Constitutional: She is oriented to person, place, and time. She appears well-developed and well-nourished. HENT: Head: Normocephalic. Right Ear: External ear normal. Left Ear: External ear normal. Eyes: Conjunctivae and EOM are normal. Pupils are equal, round, and reactive to light. Cardiovascular: Normal rate and regular rhythm. Pulmonary/Chest: Effort normal and breath sounds normal. Abdominal: Soft. Bowel sounds are normal. There is tenderness (vague generalized tenderness with palpation). Genitourinary: No vaginal discharge found. Musculoskeletal: Normal range of motion. Neurological: She is alert and oriented to person, place, and time. Skin: Skin is warm and dry. She is not diaphoretic. Psychiatric: She has a normal mood and affect. Her behavior is normal. Thought content norm al. Nursing note and vitals reviewed. Recent Results (from the past 24 hour(s)) POCT Urinalysis Dipstick Non-Automated Result Value Ref Range Color, UA, POC Yellow Yellow, Light Yellow Clarity, UA, POC Slightly Cloudy Glucose, UA, POC Negative Negative Bilirubin, UA, POC Negative Negative Ketones, UA, POC Negative Negative, 100 mg/dL Specific [place], UA, POC 1.005 1.001 - 1.030 Blood, UA, POC 50 al/uL (A) Negative pH, UA, POC 7.0 5.0, 6.0, 7.0, 8.0, 5.5, 6.5, 7.5 Protein, UA, POC Negative Negative Urobilinogen, UA, POC Negative 0.2, Negative, Normal, < 0.2 mg/dL, 1 mg/dL, < 0.2 E.U./dl, 1.0 E.U./dL, 0.2 mg/dL Nitrite, UA, POC Negative Negative Leukocyte Esterase, UA, POC Negative Negative POCT Test, Urine, QUAL Result Value Ref Range Test, Urine, POC Negative Negative Internal QC Acceptable Acceptable Specific [place], POC 1.010, 1.015, 1.020, 1.025 Lot Number Expiration Date Assessment/Plan: I suspect patient started period this AM. I reviewed reasons this happens and reviewed stre ss reduction techniques. Discharge Medications Accurate as of 09/20/17 9:17. If you have any questions, ask your nurse or doctor. New Medications Details omeprazole 20 mg Tbec Started by: KADE Russell Take 1 tablet by mouth every morning (before breakfast). aka: priLOSEC Unchanged Medications Details citalopram 10 mg tablet 1 tablet daily aka: CELEXA drospirenone-ethinyl estradiol 3-0.03 mg per tablet Take 1 tablet by mouth Daily. aka: XOCHILT PLAN: Watch and wait. If pain worsens or develops fever -return Do not take ibuprofen, start omeprazole for 2-4 weeks Reviewed GERD diet and tips for comfort If pain and discomfort persist we discussed checking labs (quant,CBC, CMP) Radha BRAUN-BC documented in this encounter Plan of Treatment Not on filedocumented as of this encounter Procedures + +--------+ + + + | Procedure Name | Priori | Date/Time | Associated Diagnosis | Comments | | | ty | | | | + +--------+ + + + | POCT TEST, | Routin | 09/20/2017 | Irregular | Results for this | | URINE, QUAL | e | 8:41 AM | periods/menstrual | procedure are in the | | | | PST | cycles | results section. | + +--------+ + + + | POCT URINALYSIS | Routin | 09/20/2017 | Lower abdominal | Results for this | | DIPSTICK | e | 8:40 AM | pain | procedure are in the | | | | PST | | results section. | + +--------+ + + + documented in this encounter Results POCT Test, Urine, QUAL (09/20/2017 8:41 AM PST) + + + + + [...] | 1.010, 1.015, | | | | [place], | | 1.020, 1.025 | | | [...] | + + POCT Urinalysis Dipstick Non-Automated (09/20/2017 8:40 AM PST) + + + + + + | Component | Value | Ref Range | Performed | Pathologist | | | | | At | Signature | + + + + + + | Color, UA, | Yellow | Yellow, Light | | | | POC | | Yellow | | | + + + + + + | Clarity, | Slightly Cloudy | | | | | UA, POC [...] 1.001 - 1.030 | | | | [place], | | | | | | UA, POC | | | | | + + + + + + | Blood, UA, | 50 al/uL (A) | Negative | | | | POC [...] + | Diagnosis | + + | Crampy pain associated with menses - Primary | + + | Gastroesophageal reflux disease, esophagitis presence not specified | + + | Lower abdominal pain Abdominal pain, other specified site | + + | Irregular periods/menstrual cycles Irregular menstrual cycle | + + documented in this encounter
--- OUTSIDE RECORDS SUMMARY | ~2020-06-11 | XMS | Encounter Summary ---
Demographics + + + | Address | [address] | | | [place] [address] | + + + | Home Phone | | + + + | Preferred Language | Unknown | + + + | Marital Status | Single | + + + | Episcopalian Affiliation | Unknown | + + + | Race | Unknown | + + + | Ethnic Group | Unknown | + + + Author + + + | Author | [facility] | | | and Shayanana | + + + | Organization | [facility] | | | [...] Team Providers + +------+ + | Care Launderette Attendant Name | Role | Phone | + +------+ + PCP | Unavailable | + +------+ + Encounter Details +--------+ + + + + | Date | Type | Department | Care Team | Description | +--------+ + + + + | 08/27/ | Hospital | [facility] | Kimberly Lopez | | | 2015 | Encounter | [facility] | MD [address] | | | | | [facility] [facility] | [address] [place] | | | | | [address] | [place] [address] | | | | | [address] [place], [place] | [phone] | | | | | [address] | | | | | | [phone] | | | +--------+ + + + [...]
--- OUTSIDE RECORDS SUMMARY | ~2020-06-11 | XMS | Encounter Summary ---
Demographics + + + | Address | [address] | | | [place] [address] | + + + | Home Phone | | + + + | Preferred Language | Unknown | + + + | Marital Status | Single | + + + | Uatsdin Affiliation | Unknown | + + + | Race | Unknown | + + + | Ethnic Group | Unknown | + + + Author + + + | Author | [facility] | | | and Shayanana | + + + | Organization | [facility] | | | [...] Team Providers + +------+ + | Care Water Pump Assembler Name | Role | Phone | + +------+ + PCP | Unavailable | + +------+ + Encounter Details +--------+ + + + + | Date | Type | Department | Care Team | Description | +--------+ + + + + | 04/05/ | Orders Only | [facility] | Levi Roca | | | 2015 | | CONVERSION | MD [address] | | | | | [address] | [address] | | [address] | [place] [address] | | | | | [place], [place] | [phone] | | | | | [address] | | | | | | [phone] | | | +--------+ + + + [...] | + +--------+ + + + | URINALYSIS WITH | STAT | 04/05/2016 | | Results for this | | MICROSCOPIC IF | | 9:29 PM | | procedure are in the | | INDICATED | | PDT | | results section. | + +--------+ + + + | HCG, URINE, QUAL | STAT | 04/05/2016 | | Results for this | | | | 9:29 PM | | procedure are in the | | | | PDT | | results section. | + +--------+ + + + documented in this encounter Results , Urine, Qual (04/05/2016 9:29 PM PDT) + + + + + + | Component | Value | Ref Range | Performed | Pathologist | | | | | At | Signature | + + + + + + | Preg Test, | Negative | | EXTERNAL | | | Ur | | | LAB | | + + + + + + + + | Specimen | + + | | + + + +---------+ + + | Performing | Address | City/State/Zipcode | Phone Number | | Organization | | | | + +---------+ + + | EXTERNAL LAB | | | | + +---------+ + + Urinalysis with Microscopic if Indicated (04/05/2016 9:29 PM PDT) + + + + + + | Component | Value | Ref Range | Performed | Pathologist | | | | | At | Signature | + + + + + + | Amorphous | None Seen | None Seen /HPF | EXTERNAL | | | Crystals, | | | LAB | | | Urine | | | | | + + + + + + | Bacteria, | 1+ (A) | None Seen,Trace | EXTERNAL | | | Urine | | /HPF | LAB | | + + + + + + | Bilirubin, | Negative | Negative - | EXTERNAL | | | Urine | | | LAB | | + + + + + + | CASTS | None Seen | None Seen /LPF | EXTERNAL | | | | | | LAB | | + + + + + + | Clarity, | Slightly Cloudy | - | EXTERNAL | | | Urine | | | LAB | | + + + + + + | Color, | Yellow | - | EXTERNAL | | | Urine | | | LAB | | + + + + + + | Crystal | None Seen | None Seen /LPF | EXTERNAL | | | Type, Body | | | LAB | | | Fluid | | | | | + + + + + + | Epithelial | Moderate (A) | None Seen /HPF | EXTERNAL | | | Cells | | | LAB | | + + + + + + | Glucose, | Negative | Negative mg/dL | EXTERNAL | | | Urine | | | LAB | | + + + + + + | Ketones, | Trace (A) | Negative mg/dL | EXTERNAL | | | Urine | | | LAB | | + + + + + + | Leukocyte | Small (A) | Negative - | EXTERNAL | | | Esterase, | | | LAB | | | Urine | | | | | + + + + + + | Mucus, | None Seen | None Seen,Trace | EXTERNAL | | | Urine | | /HPF | LAB | | + + + + + + | Nitrite, | Positive (A) | Negative - | EXTERNAL | | | Urine | | | LAB | | + + + + + + | pH, Urine | 5.0 | 5.0 - 8.0 - | EXTERNAL | | | | | | LAB | | + + + + + + | Protein, | >=300 mg/dL | Negative mg/dL | EXTERNAL | | | Urine | | | LAB | | + + + + + + | Red Blood | 11-25 (A) | None Seen /HPF | EXTERNAL | | | Cells, | | | LAB | | | Urine | | | | | + + + + + + | Specific | 1.034 | - | EXTERNAL | | | [place], | | | LAB | | | Urine | | | | | + + + + + + | White Blood | 51-100 (A) | None Seen /HPF | EXTERNAL | | | Cells, | | | LAB | | | Urine | | | | | + + + + + + | YEAST | None Seen | None Seen /HPF | EXTERNAL | | | | | | LAB | | + + + + + + | Blood, | Large (A) | Negative - | EXTERNAL | | | Urine | | | LAB | | + + + + + + | Urobilinoge | 0.2 E.U./dL | 0.2 E.U./dL | EXTERNAL | | | n, Urine | | | LAB | | + + + + + + | Culture | YES (A) | NO - | EXTERNAL | | | | | | LAB | | + + + + + + + + | Specimen | + + | | + + + +---------+ + + | Performing | Address | City/State/Zipcode | Phone Number | | Organization | | | | + +---------+ + + | EXTERNAL LAB | | | | + +---------+ + + documented in this encounter Visit Diagnoses Not on filedocumented in this encounter"
--- OUTSIDE RECORDS SUMMARY | ~2020-06-11 | XMS | Encounter Summary ---
Demographics + + + | Address | [address] | | | [place] [address] | + + + | Home Phone | | + + + | Preferred Language | Unknown | + + + | Marital Status | Single | + + + | Hoahaoism Affiliation | Unknown | + + + | Race | Unknown | + + + | Ethnic Group | Unknown | + + + Author + + + | Author | [facility] | | | and Shayanana | + + + | Organization | [facility] | | | [...] Team Providers + +------+ + | Care Corrections Lieutenant Name | Role | Phone | + +------+ + | Layne Mccurdy MD | PCP | | + +------+ + Encounter Details +--------+ + + + + | Date | Type | Department | Care Team | Description | +--------+ + + + + | 06/29/ | Hospital | [facility] | Mani Lopez MD | | | 2017 | Encounter | [facility] [address] | [address] [place] | | | | | [address] [place] | [place], [place] | | | | | [place], [place] | [address] | | | | | [address] | [phone] | | | | | [phone] | | | +--------+ + + + [...]
--- OUTSIDE RECORDS SUMMARY | ~2020-06-11 | XMS | Encounter Summary ---
Demographics + + + | Address | [address] | | | [place] [address] | + + + | Home Phone | | + + + | Preferred Language | Unknown | + + + | Marital Status | Single | + + + | Lutheran Affiliation | Unknown | + + + | Race | Unknown | + + + | Ethnic Group | Unknown | + + + Author + + + | Author | [facility] | | | and Shayanana | + + + | Organization | [facility] | | | [...] Team Providers + +------+ + | Care Middle School Sports Coach Name | Role | Phone | + +------+ + | Layne Mccurdy MD | PCP | | + +------+ + Reason for Visit + +--------+ + | Reason | Onset | Comments | | | Date | | + +--------+ + | Medication Refill | 06/19/ | | | | 2016 | | + +--------+ + Encounter Details +--------+--------+ + + + | Date | Type | Department | Care Team | Description | +--------+--------+ + + + | 06/19/ | Refill | [facility] | Layne Mccurdy | Medication Refill | | 2017 | | [facility] | [address] | | | | | [place] [facility] | [address] | | | | | [address] | [place] [address] | | | | | [address] [place], [place] | [phone] | | | | | [address] | | | | | | [phone] | | | +--------+--------+ + + + [...]
--- OUTSIDE RECORDS SUMMARY | ~2020-06-11 | XMS | Encounter Summary ---
Demographics + + + | Address | [address] | | | [place] [address] | + + + | Home Phone | | + + + | Preferred Language | Unknown | + + + | Marital Status | Single | + + + | Yazidism Affiliation | Unknown | + + + | Race | Unknown | + + + | Ethnic Group | Unknown | + + + Author + + + | Author | [facility] | | | and Shayanana | + + + | Organization | [facility] | | [...] Team Providers + +------+ + | Care Mineral Industry Teacher Name | Role | Phone | + +------+ + | Layne Mccurdy MD | PCP | | + +------+ + Reason for Visit +---------+ + | Reason | Comments | +---------+ + | Post Op | | +---------+ + Encounter Details +--------+---------+ + + + | Date | Type | Department | Care Team | Description | +--------+---------+ + + + | 05/25/ | Office | [facility] | David Lara | Follow up (Primary | | 2017 | Visit | [facility]OSP[facility] | [address] | Dx) | | | | [facility] [place] [facility] | [address] | | | | | [facility] [address] | [place], [place] | | | | | [address] [place], [place] | [address] | | | | | [address] | [phone] | | | | | [phone] | | | +--------+---------+ + + + [...] encounter Progress Notes David Lara MD - 05/25/2017 3:15 PM PDTName: Kerri Alejandra : 1990 Today: 05/25/2017 Kerri Alejandra is a 27 y.o. female s/p EUA and excision of redundant perianal tissue. 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 She continues to have some e pisodes with bleeding which occurred approximately once a week. She states that she's gett ing adequate fiber and fluid intake For the stool to soften up. She has a high fiber diet a nd eats well. The thing that is bothering her the most at this point is the sentinel take at the end of the fistula site which causes irritation and makes it difficult to keep the ar ea clean. An EUA was recommended for better evaluation of any residual fissure, and a to pe rform a SLIS if indicated. At the time of the procedure she had No active fissure althoug h she does have some redundant perianal tissue at the 6:00 position for which excision at th is excessive tissue was performed. At this point she is coming along pretty good. She takes 200 mg of Advil in the morning an d evening otherwise no other pain medications. She has a little bleeding with bowel movemen ts. Her stool is soft and she is taking fiber supplement. At this point we will follow her up in a couple weeks if need be. David Lara MD documented in this encounter Plan of Treatment Not on filedocumented as of this encounter Visit Diagnoses + + | Diagnosis | + + | Follow up - Primary | + + documented in this encounter"
--- OUTSIDE RECORDS SUMMARY | ~2020-06-11 | XMS | Encounter Summary ---
Demographics + + + | Address | [address] | | | [place] [address] | + + + | Home Phone | | + + + | Preferred Language | Unknown | + + + | Marital Status | Single | + + + | Anabaptism Affiliation | Unknown | + + + | Race | Unknown | + + + | Ethnic Group | Unknown | + + + Author + + + | Author | [facility] | | | and Shayanana | + + + | Organization | [facility] | | [...] Team Providers + +------+ + | Care Deicer Kit Assembler Name | Role | Phone | + +------+ + | Layne Mccurdy MD | PCP | | + +------+ + Encounter Details +--------+ + + + + | Date | Type | Department | Care Team | Description | +--------+ + + + + | 05/25/ | Hospital | [facility] | Mani Lopez MD | | | 2017 | Encounter | [facility] [address] | [address] [place] | | | | | [address] [place] | [place], [place] | | | | | [place], [place] | [address] | | | | | [address] | [phone] | | | | | [phone] | | | +--------+ + + + [...]
--- OUTSIDE RECORDS SUMMARY | ~2020-06-11 | XMS | Encounter Summary ---
Demographics + + + | Address | [address] | | | [place] [address] | + + + | Home Phone | | + + + | Preferred Language | Unknown | + + + | Marital Status | Single | + + + | Scientologist Affiliation | Unknown | + + + [...] Team Providers + +------+ + | Care Oven Dumper Name | Role | Phone | + +------+ + | Layne Mccurdy MD | PCP | | + +------+ + Reason for Visit + + + | Reason | Comments | + + + | Follow-up | same cramps/tightness in lower abdomen, having irregular periods | | | every 2 wks | + + + Encounter Details +--------+---------+ + + + | Date | Type | Department | Care Team | Description | +--------+---------+ + + + | 01/19/ | Office | [facility] | Layne Mccurdy | Pelvic pain (Primary | | 2017 | Visit | [facility] | [address] | Dx) | | | | [place] [facility] [address] | | | | | [address] | [place] [address] | | | | | [address] [place], [place] | [phone] | | | | | [address] | | | | | | [phone] | | | +--------+---------+ + + + [...] + + + | Blood Pressure | 120/72 | 01/19/2017 4:22 PM | | | | | PDT | | + + + + + | Pulse | 60 | 01/19/2017 4:22 PM | | | | | PDT | | + + + + + | Temperature | - | - | | + + + + + | Respiratory Rate | 16 | 01/19/2017 4:22 PM | | | | | PDT | | + + + + + | Oxygen Saturation | 98% | 01/19/2017 4:22 PM | | | | | PDT | | + + + + + | Inhaled Oxygen | - | - | | | Concentration | | | | + + + + + | Weight | 63.8 kg (140 lb 9.6 | 01/19/2017 4:22 PM | | | | oz) | PDT | | + + + + + | Height | 165.1 cm (5' 5") | 01/19/2017 4:22 PM | | | | | PDT | | + + + + + | Body Mass Index | 23.4 | 01/19/2017 4:22 PM | | | | | PDT | | + + + + + documented in this encounter Progress Notes Layne Mccurdy MD - 01/19/2017 4:26 PM PDTFormatting of this note might be diff erent from the original. History: Kerri Alejandra is a 26 y.o. female Chief Complaint: Follow-up HPI Here for continued abd pain. C/o pain in lower abd - both left and Rt side. Can move to b k as well. Can not correlate the pain with anything - food/ activity/ bowels/ urinating/ menses. Did have an irregular cycle despite taking BCP routinely. Is concerned it could be cancer or some other worrisome problem. Has Grandmother with h/o ovarian cancer. Did just have pap that was normal. Does not feel abd pain is related to mood - has gone to counseling and feels mood is good c urrently. Is planning on traveling to [place] soon. Has an appt with Dr Lara next with for recurrent problem with anal fissure (thou is OK curr ently) Patient Active Problem List Diagnosis Deviated nasal septum Anxiety Medications Outpatient Prescriptions Prior to Visit Medication Sig Dispense Refill citalopram (CELEXA) 10 mg tablet 1 tablet daily 30 tablet 3 VALERIA-28 0.15-30 MG-MCG per tablet 12 No facility-administered medications prior to visit. Review of Systems Review of Systems Constitutional: Negative for chills. Respiratory: Negative for chest tightness. Genitourinary: Positive for dysuria. Negative for hematuria. Physical Examination: BP 120/72 mmHg | Pulse 60 | Resp 16 | Ht 1.651 m (5' 5") | Wt 63.776 kg (140 lb 9.6 oz) | B WA 23.40 kg/m2 | SpO2 98% Physical Exam Constitutional: She appears well-developed and well-nourished. No distress. Cardiovascular: Normal rate and regular rhythm. Pulmonary/Chest: Effort normal. Abdominal: Soft. She exhibits no distension and no mass. There is tenderness (diffuse tende rness with palpation bilateral lower abd and flank). Musculoskeletal: She exhibits no edema. Assessment/Plan: 26 yo female 1. Lower abd/ pelvic pain - will get US to eval further. Will watch menses - if continued problem with break throu bleeding or abn cycles, can change BCP. --last visit had UA, pap all wnl. documented i n this encounter Plan of Treatment Not on filedocumented as of this encounter Results US Pelvis W Transvaginal (01/25/2017 3:29 PM PDT) + + | Specimen | + + | | + + + + + | Narrative | Performed At | + + + | [address] | | | [place], [place] [address] | | | NAME: KERRI ALEJANDRA DATE: 01/25/2017 : | | | 1990 PT GENDER: F ROOM: Out PHYSICIAN: | | | LAYNE MCCURDY PID#: [id number] CC TO: MR#: | | | PROCEDURE: ULTRASOUND PELVIC (TRANSABDOMINAL AND TRANSVAGINAL) | | | INDICATIONS: Pelvic pain for 3 weeks. COMPARISON: | | | None. LMP: Spotting x 3 months. SURGERIES: No. LAB | | | RESULTS: N/A. HCG: Negative. POLICE DETENTION ATTENDANT: | | | N/A. FINDINGS - TRANSABDOMINAL [...] ADNEXA:Ovary measurement: 15 x 20 x 21 [id number] No | | | free fluid. IMPRESSION: [...] + | Jose Doherty Results In - 01/28/2017 8:50 PM [facility] | | [address] [facility] | | [place], [place] [address] | | | | | | NAME: KERRI ALEJANDRA DATE: 01/25/2017 | | : 1990 PT GENDER: F ROOM: Out | | PHYSICIAN: LAYNE MCCURDY PID#: [id number] | | CC TO: MR#: | | | | PROCEDURE: ULTRASOUND PELVIC (TRANSABDOMINAL AND TRANSVAGINAL) | | | | INDICATIONS: Pelvic pain for 3 weeks. | | | | COMPARISON: None. | | LMP: Spotting x 3 months. | | SURGERIES: No. | | LAB RESULTS: N/A. HCG: Negative. | | POLICE DETENTION ATTENDANT: N/A. | | | | FINDINGS - [...] | measurement: 15 x 20 x 21 [id number] No free fluid. | | IMPRESSION: | [...] Diagnosis | + + | Pelvic pain - Primary | + + documented in this encounter
--- OUTSIDE RECORDS SUMMARY | ~2020-06-11 | XMS | Encounter Summary ---
Demographics + + + | Address | [address] | | | [place] [address] | + + + | Home Phone | | + + + | Preferred Language | Unknown | + + + | Marital Status | Single | + + + | Gnosticist Affiliation | Unknown | + + + | Race | Unknown | + + + | Ethnic Group | Unknown | + + + Author + + + | Author | [facility] | | | and Shayanana | + + + | Organization | [facility] | | | [...] Team Providers + +------+ + | Care Network Desktop Support Specialist Name | Role | Phone | + +------+ + | Layne Mccurdy MD | PCP | | + +------+ + Encounter Details +--------+ + + + + | Date | Type | Department | Care Team | Description | +--------+ + + + + | 05/17/ | Anesthesia | [facility] | Radha, | | | 2017 | Event | HOSP[facility] | [address] | | | | | [address] | [facility] [address] | | | | | [place], [place] | [place] [address] | | | | | [address] | [phone] | | | | | [phone] | | | +--------+ + + + + Anesthesia Record + + + + + | Procedure Name | Responsible | Anesthesia Start | Anesthesia Stop Time | | | Anesthesiologist | Time | | + + + + + | EXCISION LESION SKIN | Tr Garcia, | 05/17/17 0941 | 05/17/17 1035 | | (N/A Rectum) | ORNAMENTAL METALWORK DESIGNER | | | + + + + + +----+---+ + + | Da | T | Event | Comment | | te | i | | | | | m | | | | | e | | | +----+---+ + + | 07 | 0 | Antibiotic | | | /1 | 9 | Given | | | 2/ | 1 | | | | 20 | 9 | | | | 17 | | | | +----+---+ + + | | 0 | | | | | 9 | | | | | 2 | | | | | 0 | | | +----+---+ + + | | 0 | An Checkout | Pre-use anesthesia machine/equipment checkout. | | | 9 | | | | | 2 | | | | | 1 | | | +----+---+ + + | | 0 | An Start | Reassessment prior to anesthesia induction/procedure. Pt to OR | | | 9 | | per cart, monitors placed, VSS, Pre O2/ FM, Pre Rx with Versed | | | 4 | | 2mg, Fentanyl 100mcg, Lidocaine 20mg, Rocuronium 5mg, INDUCTION: | | | 1 | | Propofol 100mg, Vent/FM with O2 with ease, Rocuronium 15mg, | | | | | Vent/FM with O2/Sevoflurane; Laryngoscopy with #3 MAC with good | | | | | visual, Intubated atraumatically x1, cuff up, BBSEx2 & good | | | | | CO2/ET waveform, tube taped 19cm @ teeth, BBSEx2, Pt placed on | | | | | ventilator, OU taped, Pt to prone position per MD/Staff assist- | | | | | with bilat shoulder rolls and prone pillow, eyes/ears clear, | | | | | BBSEx4, Pt position re-checked post shimon knife positioning by | | | | | MD. | +----+---+ + + | | 0 | Preoxygenat | | | | 9 | ed | | | | 4 | | | | | 4 | | | +----+---+ + + | | 0 | An | | | | 9 | Induction | | | | 4 | | | | | 5 | | | +----+---+ + + | | 0 | An | | | | 9 | Intubation | | | | 4 | | | | | 6 | | | +----+---+ + + | | 1 | Pre-Procedu | | | | 0 | ral Timeout | | | | 0 | Completed | | | | 1 | | | +----+---+ + + | | 1 | First | | | | 0 | Inc/Proc St | | | | 0 | | | | | 2 | | | +----+---+ + + | | 1 | An Data Art | Pt being moved from prone position to supine. | | | 0 | | | | | 1 | | | | | 5 | | | +----+---+ + + | | 1 | Quick Note | Pt returns to 4 brisk twitches / PNS-T4, Pt returns to SR with | | | 0 | | adeq Vt/rate, suctioned x1, cuff down and Pt extubated without | | | 1 | | difficulty, O2/FM with SR with adeq Vt/rate, VSS, Tx to | | | 6 | | PACU/cart. | +----+---+ + + | | 1 | Breathing | | | | 0 | Spontaneous | | | | 2 | ly | | | | 0 | | | +----+---+ + + | | 1 | Extubated | | | | 0 | Deep | | | | 2 | | | | | 2 | | | +----+---+ + + | | 1 | an stop | | | | 0 | data | | | | 2 | | | | | 8 | | | +----+---+ + + | | 1 | An Stop | Patient handed off to recovery nurse. | | | 3 | | | | | 5 | | | +----+---+ + + +------+ | Meds | +------+ + +---------+ | Name | Total | + +---------+ | midazolam 1mg/ml injection | 2 mg | + +---------+ | fentaNYL | 200 mcg | + +---------+ | lidocaine (PF) 1% injection | 20 mg | + +---------+ | rocuronium | 20 mg | + +---------+ | propofol (DIPRIVAN) injection | 150 mg | | (bolus) | | + +---------+ | ondansetron 2mg/ml injection | 4 mg | + +---------+ | dexamethasone 4 mg/mL | 4 mg | + +---------+ | lactated ringers (Infusion) | 600 mL | + +---------+ + + | Name | + + | O2 Flow Rate (L/Min) | + + | Insp O2 | + + | Exp SEV | + + + + | No blood administrations on file. | + + +--------+ + + + | Type | Details | Placement | Removal | +--------+ + + + | Periph | 05/17/17; 910; Right; Posterior | 05/17/17910 by | 05/17/171123 by | | eral | (dorsal); Hand; [id number] | Stacey Greene, | Stacey Greene, | | IV | catheter system; 18 gauge; | RN | RN | | | distraction, intradermal | | | | | injection; 05/17/17; 1124 | | | +--------+ + + + | Airway | Placement Date: 05/17/17; | 05/17/17920 by | 05/17/171021 by | | | Placement Time: 920; Airway | Tr Garcia, | Tr Garcia, | | | Type: endotracheal, oral; Removal | ORNAMENTAL METALWORK DESIGNER | ORNAMENTAL METALWORK DESIGNER | | | Date: 05/17/17; Removal Time: | | | | | 1022 | | | +--------+ + + + documented in this encounter Social History + +-------+ +--------+------+ | Tobacco [...] + + documented as of this encounter OR Notes Anesthesia Postprocedure Evaluation - Tr Garcia CRNA - 05/17/2017 10:47 AM PDTFor matting of this note might be different from the original. ANESTHESIA POSTANESTHESIA EVALUATION Kerri Alejandra 27 y.o. female 1990 [id number] Procedure(s) EXCISION LESION SKIN (N/A Rectum) Cooperates? Yes Mental Status Answers questions appropriately., Performs simple tasks. and Alert Respiratory Satisfactory - Airway patent (self maintained). Cardiovascular Satisfactory - Blood pressure and heart rate acceptable Temperature Satisfactory Pain Satisfactory N/V Control Satisfactory Hydration Satisfactory - No signs of dehydration Complications None apparent Vitals: 05/17/17 0924 05/17/17 1032 BP: 105/67 105/69 Pulse: 54 81 Temp: 36.5 C (97.7 F) 36.4 C (97.5 F) Resp: 14 17 SpO2: 96% Pt states has minimal surgical pain, 0- N/V, 0- Respiratory difficulty, no other C/O @ this time, Pt tolerated anesthetic well with NAAC's noted @ this time. Electronically signed by Tr Garcia CRNA 05/17/2017 10:47 CC [facility] Tr Garcia CRNA at 017 10:48 AM PDTAnesthesia Preprocedure Evaluation - Tr Garcia CRNA - 05/17/2017 8:32 AM PDT ANESTHESIA PREANESTHESIA EVALUATION Kerri Navarreteworth 27 y.o. female 1990 [id number] Procedure(s): SPHINCTEROTOMY (N/A Rectum) Medical history, anesthesia, medications, allergy, NPO status verified histories reviewed. Review of Systems / Med History Anesthesia History No anesthesia complications. Cardiovascular Negative except where noted below. Pulmonary Negative except where noted below. Neurology Negative except where noted below. Psychology (+) anxiety, depression, post-traumatic stress disorder Renal Negative except where noted below. Gastrointestinal/Hepatic Negative except where noted below. Endocrine Negative except where noted below. Pediatric History Negative except where noted below. Obstetrics Negative except where noted below. Other Negative except where noted below. Cancer Negative except where noted below. Physical Exam Airway MP II, TM >3 FB, Mouth opening >2 FB. Neck: full ROM, extends >30 degrees. Jaw protrus ion normal. Dental Grossly normal except where noted below.; CV cardiovascular normal Rhythm regular. Rate normal. Pulm Clear to auscultation bilaterally. Neuro Grossly normal. Anesthesia Plan ASA 1 Type: General. Induction: Intravenous. Potential problems: None anticipated. Monitors: Standard ASA monitors. Consent statement: Risks discussed included (but were not limited to): pain, sore throat, nausea, . Consenting person understands and agrees to proceed. Electronically Signed by: Tr Garcia CRNA ESig date/time: 05/17/2017 8:32 documented in th is encounter Plan of Treatment Not on filedocumented as of this encounter Visit Diagnoses Not on filedocumented in this encounter Administered Medications + +--------+ +------+------+------+ | Medication Order | MAR | Action | Dose | Rate | Site | | | Action | Date | | | | + +--------+ +------+------+------+ | dexamethasone (DECADRON) 4 | Given | 05/17/20 | 4 mg | | | | mg/mL injection Intravenous, | | 17 10:10 | | | | | PRN, Starting 05/17/17 at | | AM PDT | | | | | 1010, Anesthesia Intra-op | | | | | | + +--------+ +------+------+------+ +---+---+ | | | +---+---+ + +-------+ +---------+---+---+ | fentaNYL (PF) injection | Given | 05/17/20 | 100 mcg | | | | Intravenous, PRN, Pain, Starting | | 17 9:50 | | | | | 05/17/17 at 0942, Anesthesia | | AM PDT | | | | | Intra-op | | | | | | + +-------+ +---------+---+---+ +-------+ +---------+---+---+ | Given | 05/17/20 | 100 mcg | | | | | 17 9:42 | | | | | | AM PDT | | | | +-------+ +---------+---+---+ +---+---+ | | | +---+---+ + +---------+ +---+---+---+ | lactated ringers (LR) infusion | New Bag | 05/17/20 | | | | | Intravenous, CONTINUOUS PRN, | | 17 9:11 | | | | | Starting Mon05/17/17 at 0911, | | AM PDT | | | | | Anesthesia Intra-op | | | | | | + +---------+ +---+---+---+ +---+---+ | | | +---+---+ + +-------+ +-------+---+---+ | lidocaine (PF) 1% injection | Given | 05/17/20 | 20 mg | | | | PRN, Starting Mon05/17/17 at | | 17 9:44 | | | | | 0944, Anesthesia Intra-op | | AM PDT | | | | + +-------+ +-------+---+---+ +---+---+ | | | +---+---+ + +-------+ +------+---+---+ | midazolam (VERSED) 1 mg/mL | Given | 05/17/20 | 2 mg | | | | injection PRN, Anxiety, Starting | | 17 9:42 | | | | | Mon05/17/17 at 0942, Anesthesia | | AM PDT | | | | | Intra-op | | | | | | + +-------+ +------+---+---+ +---+---+ | | | +---+---+ + +-------+ +------+---+---+ | ondansetron (ZOFRAN) injection | Given | 05/17/20 | 4 mg | | | | Intravenous, PRN, Nausea, | | 17 10:10 | | | | | Vomiting, Starting Mon05/17/17 at | | AM PDT | | | | | 1010, Anesthesia Intra-op | | | | | | + +-------+ +------+---+---+ +---+---+ | | | +---+---+ + +-------+ +-------+---+---+ | propofol (DIPRIVAN) injection | Given | 05/17/20 | 50 mg | | | | PRN, Starting Mon05/17/17 at | | 17 9:50 | | | | | 0945, Anesthesia Intra-op | | AM PDT | | | | + +-------+ +-------+---+---+ +-------+ +--------+---+---+ | Given | 05/17/20 | 100 mg | | | | | 17 9:45 | | | | | | AM PDT | | | | +-------+ +--------+---+---+ +---+---+ | | | +---+---+ + +-------+ +-------+---+---+ | rocuronium (ZEMURON) injection | Given | 05/17/20 | 15 mg | | | | Intravenous, PRN, Ventilator | | 17 9:45 | | | | | Dyssynchrony, Starting Wed | | AM PDT | | | | | 05/17/17 at 0945, Anesthesia | | | | | | | Intra-op | | | | | | + +-------+ +-------+---+---+ +-------+ +------+---+---+ | Given | 05/17/20 | 5 mg | | | | | 17 9:44 | | | | | | AM PDT | | | | +-------+ +------+---+---+ +---+---+ | | | +---+---+ documented in this encounter"
--- OUTSIDE RECORDS SUMMARY | ~2020-06-11 | XMS | Encounter Summary ---
Demographics + + + | Address | [address] | | | [place] [address] | + + + | Home Phone | | + + + | Preferred Language | Unknown | + + + | Marital Status | Single | + + + | Episcopalian Affiliation | Unknown | + + + | Race | Unknown | + + + | Ethnic Group | Unknown | + + + Author + + + | Author | [facility] | | | and Shayanana | + + + | Organization | [facility] | | | and [...] Team Providers + +------+ + | Care Bookie Name | Role | Phone | + [...] + + | Closed | Specialty | Psychology | Diagnoses | Kaz | | | | Services | | PTSD | Layne | | | | Required | | (post-trauma | [address]ara | | | | | | tic stress | [address] | | | | | | disorder) | [address] | | | | | | | | | | | | | | [place], | | | | | | | [place] [address] | | | | | | | Phone: | | | | | | | [phone] | | | | | | | Fax: | | | | | | | [phone] | | +--------+ + + + + + Reason for Visit + + + | Reason | Comments | + + + | Mental Health | Possible PTSD? | | Problem | | + + + Encounter Details +--------+---------+ + + + | Date | Type | Department | Care Team | Description | +--------+---------+ + + + | 08/25/ | Office | [facility] | Layne Mccurdy | PTSD (post-traumatic | | 2016 | Visit | [facility] | [address] | stress disorder) | | | | [place] [facility] | [address] | (Primary Dx) | | | | [address] | [place] [address] | | | | [address] [place], [place] | [phone] | | | | | [address] | | | | | | [phone] | | | +--------+---------+ + + + [...] + + + | Blood Pressure | 120/80 | 08/25/2016 3:29 PM | | | | | PDT | | + + + + + | Pulse | 79 | 08/25/2016 3:29 PM | | | | | PDT | | + + + + + | Temperature | - | - | | + + + + + | Respiratory Rate | 17 | 08/25/2016 3:29 PM | | | | | PDT | | + + + + + | Oxygen Saturation | - | - | | + + + + + | Inhaled Oxygen | - | - | | | Concentration | | | | + + + + + | Weight | 65.1 kg (143 lb 9.6 | 08/25/2016 3:29 PM | | | | oz) | PDT | | + + + + + | Height | 165.1 cm (5' 5") | 08/25/2016 3:29 PM | | | | | PDT | | + + + + + | Body Mass Index | 23.9 | 08/25/2016 3:29 PM | | | | | PDT | | + + + + + documented in this encounter Patient Instructions Patient Instructions Layne Mccurdy MD - 08/25/2016 3:42 PM PDT1. [facility] - let me know if things are not getting lynette r. The cell number for the oncall counselor is : [phone] documented in this encounter Progress Notes Layne Mccurdy MD - 08/25/2016 3:33 PM PDTFormatting of this note might be diff erent from the original. History: Kerri Alejandra is a 26 y.o. female Chief Complaint: Mental Health Problem HPI Comes in as she is concerned she could have some PTSD. Had a traumatic episode in the past , and now has sudden things that are triggering memories. This can make her anxious. Is sl eeping OK. Is taking Celexa and tolerating it well. However, last month has been more diff icult. Has not seen a counselor but is interested in seeing one. Patient Active Problem List Diagnosis Deviated nasal septum Anxiety Medications Outpatient Prescriptions Prior to Visit Medication Sig Dispense Refill citalopram (CELEXA) 10 mg tablet 1/2 tablet daily for a week then one daily 30 tablet 3 VALERIA-28 0.15-30 MG-MCG per tablet 12 No facility-administered medications prior to visit. Review of Systems Review of Systems Respiratory: Negative for chest tightness. Psychiatric/Behavioral: Negative for hallucinations and self-injury. Physical Examination: BP 120/80 mmHg | Pulse 79 | Resp 17 | Ht 1.651 m (5' 5") | Wt 65.137 kg (143 lb 9.6 oz) | B MD 23.90 kg/m2 Physical Exam Constitutional: No distress. Seems anxious, but makes good eye contact. Assessment/Plan: 26 yo female with anxiety and traumatic experience in past - having that memory triggered o ften and is interfering with daily life. Will refer to [facility] for counseling - gave the crisis number to use if needs. May need to readjust meds - but will start with co unseling. documented i n this encounter Plan of Treatment + + +--------+ + + | Name | Type | Priori | Associated Diagnoses | Order Schedule | | | | ty | | | + + +--------+ + + | Ambulatory referral | Outpatient | Routin | PTSD | Ordered: 08/25/2016 | | to Psychology | Referral | e | (post-traumatic | | | | | | stress disorder) | | + + +--------+ + + documented as of this encounter Visit Diagnoses + + | Diagnosis | + + | PTSD (post-traumatic stress disorder) - Primary Posttraumatic stress disorder | + + documented in this encounter
[2020-06-11] MEDS ORDERED: PRENATA CHEWAB1 EACH PO (06:18)
--- NOTE | 2020-06-11 08:28 | PR ---
[facility] [address] [place], [place] [address] Signed Progress Notes IP Datetime Report Generated by CPOmer: 06/11/2020 08:28 PROGRESS NOTES: [id number] Impression: Normal Progression of Labor; Reassuring Heart Rate Procedures: Artificial ROM; Sterile Vag Exam Plan: Continue Present Management Other Plans: Epidural on demand Informed Consent Obtain: Vaginal Delivery Other Informed Consents: AROM VITAL SIGNS: [id number] Vital Signs: Reviewed; Within Normal Limits EXAM: [id number] Dilatation: 3.5 Effacement: 90 Station: -2 Contractions: Irregular MEMBRANES: [id number] Comments: Pt seen and examined. Irregular painful contractions. FHT reassuring. Discussed options for management of labor. Pt desires AROM after verbal consent. Vertex well applied. AROM performed for large amount of clear fluid. Mother and baby tolerated well. FETUS A: [id number] FHR Baseline: 130 Variability: Moderate 6-25bpm Accelerations: 15X15 Decelerations: None FHR Category: Category I Presentation: Vertex Comments on Fetus A: No evidence of metabolic acidosis FETUS B: [id number] Signing Physician: Geraldine Suárez DO Copies: ~ *Electronically Signed* 06/11/20 0828 GERALDINE SUÁREZ DO PATIENT NAME: BERENICE GRANGER PROGRESS NOTE DATE OF : 89 PHYSICIAN: GERALDINE SUÁREZ DO RPT #: [id number] REPORT IS CONFIDENTIAL AND NOT TO BE RELEASED WITHOUT AUTHORIZATION
--- NOTE | 2020-06-11 12:40 | PR ---
[facility] [address] [place], [place] [address] Signed Progress Notes IP Datetime Report Generated by PRESTON: 06/11/2020 12:40 PROGRESS NOTES: [id number] Impression: Normal Progression of Labor; Reassuring Heart Rate Procedures: Intrauterine Pressure Catheter; Scalp Electrode; Sterile Vag Exam Plan: Continue Present Management Other Plans: Epidural on demand Informed Consent Obtain: Vaginal Delivery Other Informed Consents: IUCP / FSE VITAL SIGNS: [id number] Vital Signs: Reviewed; Within Normal Limits EXAM: [id number] Dilatation: 6.5 Effacement: 100 Station: -2 Contractions: Irregular MEMBRANES: [id number] Comments: Pt seen and examined. Very uncomfortable w/ contractions. Late deceration noted while pt laboring in tub. Moderate variability with maternal repositioning. Some difficulty w/ monitoring w/ Ector and discussed IUPC and FSE. Pt understands and agrees. FSE and IUPC placed without difficulty. Accelerations and moderate variability noted w/ internals and reassuring. Will monitor closely FETUS A: [id number] FHR Baseline: 130 Variability: Moderate 6-25bpm Accelerations: 15X15 Decelerations: None FHR Category: Category I Presentation: Vertex Comments on Fetus A: No evidence of metabolic acidosis FETUS B: [id number] Signing Physician: Geraldine Suárez DO Copies: ~ *Electronically Signed* 06/11/20 1024 GERALDINE SUÁREZ DO PATIENT NAME: BERENICE GRANGER PROGRESS NOTE DATE OF : 89 PHYSICIAN: GERALDINE SUÁREZ DO RPT #: [id number] REPORT IS CONFIDENTIAL AND NOT TO BE RELEASED WITHOUT AUTHORIZATION
--- NOTE | 2020-06-11 14:03 | PR ---
[facility] [address] [place], [place] [address] Signed Progress Notes IP Datetime Report Generated by CPN: 06/11/2020 14:03 PROGRESS NOTES: [id number] Impression: Non-reassuring Heart Rate Other Impressions: Slow progression of labor Procedures: Intrauterine Pressure Catheter; Scalp Electrode; Sterile Vag Exam Plan: Tocolysis Other Plans: Epidural on demand Informed Consent Obtain: Vaginal Delivery Other Informed Consents: IUCP / FSE VITAL SIGNS: [id number] Vital Signs: Reviewed; Within Normal Limits EXAM: [id number] Dilatation: 7.0 Effacement: 100 Station: -1 Contractions: Irregular MEMBRANES: [id number] Comments: Called to pt's room to evaluate FHT. Pt comfortable following epidural. No hypotension noted. Recurrent late decelerations note despite intrauterine rescussitation w/ position changes and IV fluid bolus. IUPC was not working and external tocometer employed. Discussed non-reassuring FHT at this point however moderate variability observed. Discussed indications of , but recommend tocolysis w/ terbutaline now. Will monitor status closely FETUS A: [id number] FHR Baseline: 130 Variability: Moderate 6-25bpm Accelerations: 15X15 Decelerations: None FHR Category: Category I Presentation: Vertex Comments on Fetus A: No evidence of metabolic acidosis FETUS B: [id number] Signing Physician: Geraldine Suárez DO Copies: *Electronically Signed* 06/11/20 1835 GERALDINE SUÁREZ DO PATIENT NAME: BERENICE GRANGER PROGRESS NOTE DATE OF : 89 PHYSICIAN: GERALDINE SUÁREZ DO RPT #: [id number] REPORT IS CONFIDENTIAL AND NOT TO BE RELEASED WITHOUT AUTHORIZATION [address] [place] [address] Signed ~ *Electronically Signed* 06/11/20 1403 GERALDINE SUÁREZ DO PATIENT NAME: BERENICE GRANGER PROGRESS NOTE DATE OF : 89 PHYSICIAN: GERALDINE SUÁREZ DO RPT #: [id number] REPORT IS CONFIDENTIAL AND NOT TO BE RELEASED WITHOUT AUTHORIZATION
--- NOTE | 2020-06-11 14:35 | PR ---
[facility] [address] [place], [place] [address] Signed Progress Notes IP Datetime Report Generated by PRESTON: 06/11/2020 14:35 PROGRESS NOTES: [id number] Impression: Reassuring Heart Rate Other Impressions: Slow progression of labor Procedures: Intrauterine Pressure Catheter; Scalp Electrode; Sterile Vag Exam Plan: Continue Present Management Other Plans: Epidural on demand Informed Consent Obtain: Vaginal Delivery; Section Delivery Other Informed Consents: IUCP / FSE VITAL SIGNS: [id number] Vital Signs: Reviewed; Within Normal Limits EXAM: [id number] Dilatation: 7.0 Effacement: 100 Station: -1 Contractions: Irregular MEMBRANES: [id number] Comments: Pt seen and evaluated. CTXs have spaced with terbutaline and pt received ephedrine 10mg IV. Now Cat 1 tracing. Reviewed tracing with pt and recommended expectant management. Will monitor tolerance closely. All questions answered to best of my ability and to pt and 's apparent satisfaction. FETUS A: [id number] FHR Baseline: 130 Variability: Moderate 6-25bpm Accelerations: 15X15 Decelerations: None FHR Category: Category I Presentation: Vertex Comments on Fetus A: No evidence of metabolic acidosis FETUS B: [id number] Signing Physician: Geraldine Suárez DO Copies: ~ *Electronically Signed* 06/11/20 9007 GERALDINE SUÁREZ DO PATIENT NAME: BERENICE GRANGER PROGRESS NOTE DATE OF : [birth year] PHYSICIAN: GERALDINE SUÁREZ DO RPT #: [id number] REPORT IS CONFIDENTIAL AND NOT TO BE RELEASED WITHOUT AUTHORIZATION
--- NOTE | 2020-06-11 16:31 | PR ---
[facility] [address] [place], [place] [address] Signed Progress Notes IP Datetime Report Generated by CPN: 06/11/2020 16:31 PROGRESS NOTES: [id number] Impression: Reassuring Heart Rate Other Impressions: Slow progress of labor Procedures: Intrauterine Pressure Catheter; Sterile Vag Exam Plan: Augmentation Other Plans: Epidural on demand Informed Consent Obtain: Vaginal Delivery Other Informed Consents: Pitocin augmentation VITAL SIGNS: [id number] Vital Signs: Reviewed; Within Normal Limits EXAM: [id number] Dilatation: 8.0 Effacement: 100 Station: -1 Contractions: Irregular MEMBRANES: [id number] Comments: Pt seen and examined. Doing well. Some discomfort w /contractions in LLQ. Continued CAT 1 tracing w/ rare contractions. Slow cervical change. Recommended augmentation w/ pitocin. IUPC replaced as prior IUPC not giving accurate readings. Low dose pitocin. Again reviewed prior late decelerations and possiblity of developing similar pattern. Pt understands and agrees. FETUS A: [id number] FHR Baseline: 130 Variability: Moderate 6-25bpm Accelerations: 15X15 Decelerations: None FHR Category: Category I Presentation: Vertex Comments on Fetus A: No evidence of metabolic acidosis FETUS B: [id number] Signing Physician: Geraldine Suárez DO Copies: ~ *Electronically Signed* 06/11/20 2404 GERALDINE SUÁREZ DO PATIENT NAME: BERENICE GRANGER PROGRESS NOTE DATE OF : [birth year] PHYSICIAN: GERALDINE SUÁREZ DO [facility] #: [id number] REPORT IS CONFIDENTIAL AND NOT TO BE RELEASED WITHOUT AUTHORIZATION
--- NOTE | 2020-06-11 18:15 | PR ---
[facility] [address] [facility] [place] [address] Signed Progress Notes IP Datetime Report Generated by CPOmer: 06/11/2020 18:15 PROGRESS NOTES: [id number] Impression: Normal Progression of Labor; Reassuring Heart Rate Other Impressions: Slow progress of labor Procedures: Sterile Vag Exam Plan: Continue Present Management; Augmentation Other Plans: Epidural on demand Informed Consent Obtain: Vaginal Delivery Other Informed Consents: Pitocin augmentation VITAL SIGNS: [id number] Vital Signs: Reviewed; Within Normal Limits EXAM: [id number] Dilatation: 8.0 Effacement: 100 Station: -1 Contractions: Irregular MEMBRANES: U5780268 Comments: Pt seen and examined. Comfortable w/ contractions. FHT reassuring. CTXs more regular w/ pitocin, but still inadequate. Continue pitocin augmentation per protocol FETUS A: [id number] FHR Baseline: 130 Variability: Moderate 6-25bpm Accelerations: 15X15 Decelerations: None FHR Category: Category I Presentation: Vertex Comments on Fetus A: No evidence of metabolic acidosis FETUS B: [id number] Signing Physician: Geraldine Suárez DO Copies: ~ *Electronically Signed* 06/11/20 959 GERALDINE SUÁREZ DO PATIENT NAME: BERENICE GRANGER PROGRESS NOTE DATE OF : 89 PHYSICIAN: GERALDINE SUÁREZ #: [id number] REPORT IS CONFIDENTIAL AND NOT TO BE RELEASED WITHOUT AUTHORIZATION
--- NOTE | 2020-06-13 08:30 | PR ---
[facility] [address] [facility] [place] [address] Signed PP Progress Notes Datetime Report Generated by CPN: 06/13/2020 08:30 SUBJECTIVE: [id number] Pain: Within Normal Limits Flatus: Yes Bowel Movement: No Vital Signs: [id number] Vital Signs: Reviewed; Within Normal Limits Cardiovascular: Not Done Respiratory: Not Done Abdomen/Uterus: Abnormal Lochia: Normal Vulva/Perineum: Not Done Breasts: Not Done CVA Tenderness: Not Done Extremities: Normal Incision: Not Applicable Progress: Normal Exam Comments: Fundus firm, NT @ U-2. IMPRESSION/PLAN/PROCEDURES: [id number] Impression: Normal Progression Plan: Discharge Procedures: None Progress Notes: Doing well. She is ready for D/C. Signing Physician: Crystal Galvan MD Copies: ~ *Electronically Signed* 06/13/20829 CRYSTAL GALVAN MD PATIENT NAME: BERENICE GRANGER PROGRESS NOTE DATE OF : 89 PHYSICIAN: CRYSTAL GALVAN MD RPT #: [id number] REPORT IS CONFIDENTIAL AND NOT TO BE RELEASED WITHOUT AUTHORIZATION
== END 2020-06-13 09:50 | disposition home or self-care (01) | DRG 807 ==
LOC: FBCO 05:17 → FBC 05:45
PROVIDERS: ADMIT Obstetrics & Gynecology
PROC: 10E0XZZ Delivery of Products of Conception, External Approach (ICD-10-PCS; principal; 2020-06-11)
PROC: 10907ZC Drainage of Amniotic Fluid, Therapeutic from Products of Conception, Via Natural or Artificial Opening (ICD-10-PCS; 2020-06-11)
PROC: 3E0S3BZ Introduction of Anesthetic Agent into Epidural Space, Percutaneous Approach (ICD-10-PCS; 2020-06-11)
PROC: 00HU33Z Insertion of Infusion Device into Spinal Canal, Percutaneous Approach (ICD-10-PCS; 2020-06-11)
DX: O69.81X0 Labor and delivery complicated by cord around neck, without compression, not applicable or unspecified (principal); Z37.0 Single live birth; Z3A.40 40 weeks gestation of pregnancy; O70.0 First degree perineal laceration during delivery
CPT/HCPCS: 01960; 36415; 85027; 86850; 86900; 86901; A9270; J2590; J2795; J3010; J3105

== ENCOUNTER 2022-08-01 07:11 | Inpatient (IN) | payer OTHER ==
[~2022-08-01] VITALS: Ht 165.1 cm; Wt 83.9 kg
[~2022-08-01 07:11] MED LIST: PRENATA CHEWAB1 EACH PO
--- NOTE | 2022-08-01 15:39 | PR ---
[facility] [address] [facility] [place], [place] [address] Signed Progress Notes IP Datetime Report Generated by CPN: 08/01/2022 15:39 PROGRESS NOTES: [id number] Impression: Normal Progression of Labor; Reassuring Heart Rate Procedures: Artificial ROM; Sterile Vag Exam Plan: Continue Present Management; Anesthesia Consult Informed Consent Obtain: Vaginal Delivery VITAL SIGNS: [id number] Vital Signs: Reviewed; Within Normal Limits EXAM: [id number] Dilatation: 5.0 Effacement: 90 Station: -2 Contractions: Irregular MEMBRANES: [id number] Comments: Pt seen and examined. Doing well but painful w/ contractions. AROM performed w/out difficulty after verbal consent obtained for moderate amount clear fliud. Pt considering epidural. Discussed anticipated course of labor FETUS A: [id number] FHR Baseline: 125 Variability: Moderate 6-25bpm Accelerations: None Decelerations: None FHR Category: Category I Presentation: Vertex Comments on Fetus A: No evidence of metabolic acidosis FETUS B: [id number] Signing Physician: Geraldine Suárez DO Copies: ~ *Electronically Signed* 08/01/22 1539 GERALDINE SUÁREZ DO PATIENT NAME: BERENICE GRANGER PROGRESS NOTE DATE OF : [birth year] PHYSICIAN: GERALDINE SUÁREZ DO RPT #: [id number] REPORT IS CONFIDENTIAL AND NOT TO BE RELEASED WITHOUT AUTHORIZATION
--- NOTE | 2022-08-01 18:56 | PR ---
[facility] [address] [facility] [place], [place] [address] Signed Progress Notes IP Datetime Report Generated by CPN: 08/01/2022 18:56 PROGRESS NOTES: [id number] Impression: Normal Progression of Labor; Reassuring Heart Rate Procedures: Sterile Vag Exam Plan: Continue Present Management Other Plans: Consider augmentation Informed Consent Obtain: Vaginal Delivery VITAL SIGNS: [id number] Vital Signs: Reviewed; Within Normal Limits EXAM: [id number] Dilatation: 7.0 Effacement: 90 Station: -2 Contractions: Irregular MEMBRANES: [id number] Comments: Pt seen and examined. Doing well. Comfortable w/ contractions. Denies pelvic pressure or urge to push. Cx unchanged on exam. Will recheck again in one and consider augmentation if unchanged. FETUS A: [id number] FHR Baseline: 125 Variability: Moderate 6-25bpm Accelerations: None Decelerations: None FHR Category: Category I Presentation: Vertex Comments on Fetus A: No evidence of metabolic acidosis FETUS B: [id number] Signing Physician: Geraldine Suárez DO Copies: ~ *Electronically Signed* 08/01/22 1856 GERALDINE SUÁREZ DO PATIENT NAME: BERENICE GRANGER PROGRESS NOTE DATE OF : 89 PHYSICIAN: GERALDINE SUÁREZ DO RPT #: [id number] REPORT IS CONFIDENTIAL AND NOT TO BE RELEASED WITHOUT AUTHORIZATION
--- NOTE | 2022-08-01 20:54 | PR ---
[facility] [address] [facility] [place], [place] [address] Signed Progress Notes IP Datetime Report Generated by CPN: 08/01/2022 20:54 PROGRESS NOTES: [id number] Impression: Normal Progression of Labor; Reassuring Heart Rate Procedures: Sterile Vag Exam Plan: Continue Present Management; Anticipate Vaginal Delivery Other Plans: Anesthesia to evaluate for epidural rebolus Informed Consent Obtain: Vaginal Delivery VITAL SIGNS: [id number] Vital Signs: Reviewed; Within Normal Limits EXAM: [id number] Dilatation: 8.5 Effacement: 90 Station: -1 Contractions: Irregular MEMBRANES: [id number] Comments: Pt seen and examined. Doing well but more uncomfortable w/ contractions. Requesting epidural rebolus. Anticpate soon FETUS A: [id number] FHR Baseline: 125 Variability: Moderate 6-25bpm Accelerations: None Decelerations: None FHR Category: Category I Presentation: Vertex Comments on Fetus A: No evidence of metabolic acidosis FETUS B: [id number] Signing Physician: Geraldine Suárez DO Copies: ~ *Electronically Signed* 08/01/222053 GERALDINE SUÁREZ DO PATIENT NAME: BERENICE GRANGER PROGRESS NOTE DATE OF : 89 PHYSICIAN: GERALDINE SUÁREZ DO RPT #: [id number] REPORT IS CONFIDENTIAL AND NOT TO BE RELEASED WITHOUT AUTHORIZATION
--- NOTE | 2022-08-02 08:08 | PR ---
[facility] [address] [facility] [place] [address] Signed PP Progress Notes Datetime Report Generated by CPN: 08/02/2022 08:08 SUBJECTIVE: [id number] Pain: Within Normal Limits Nausea/Vomiting: Denies Flatus: Yes Bowel Movement: No Vital Signs: [id number] Vital Signs: Reviewed; Within Normal Limits Cardiovascular: Normal Respiratory: Normal Abdomen/Uterus: Normal Lochia: Normal Vulva/Perineum: Not Done Breasts: Not Done CVA Tenderness: Normal Extremities: Normal Incision: Not Applicable Progress: Normal Exam Comments: Fundus firm U-2 nontender IMPRESSION/PLAN/PROCEDURES: [id number] Impression: Normal Progression Plan: Continue Present Management Progress Notes: Doing well. No concerns. Anticipate d/c home tomorrow. Hgb 11.9 Signing Physician: Geraldine Suárez DO Copies: ~ *Electronically Signed* 08/02/22 08 GERALDINE SUÁREZ DO PATIENT NAME: BERENICE GRANGER PROGRESS NOTE DATE OF : 89 PHYSICIAN: GERALDINE SUÁREZ DO RPT #: [id number] REPORT IS CONFIDENTIAL AND NOT TO BE RELEASED WITHOUT AUTHORIZATION
--- NOTE | 2022-08-03 10:01 | PR ---
[facility] [address] [facility] [place], [place] [address] Signed PP Progress Notes Datetime Report Generated by CPN: 08/03/2022 10:01 SUBJECTIVE: [id number] Pain: Within Normal Limits Nausea/Vomiting: Denies Flatus: Yes Bowel Movement: Yes Vital Signs: [id number] Vital Signs: Reviewed; Within Normal Limits Cardiovascular: Normal Respiratory: Normal Abdomen/Uterus: Normal Lochia: Normal Vulva/Perineum: Not Done Breasts: Not Done CVA Tenderness: Normal Extremities: Normal Incision: Not Applicable Progress: Normal Exam Comments: Fundus firm U-2 nontender IMPRESSION/PLAN/PROCEDURES: [id number] Impression: Normal Progression Plan: Discharge Progress Notes: Pt seen and examined. Doing well. Ambulating, voiding, and tolerating full diet. Pain and lochia minimal. Vulvar edema slowly improving per pt, but not painful. No fevers/chills. well. No other questions or concerns. Desires d/c home. Planning OCPs for pp contraception. Signing Physician: Geraldine Suárez DO Copies: ~ *Electronically Signed* 08/03/22 1001 GERALDINE SUÁREZ DO PATIENT NAME: BERENICE GRANGER PROGRESS NOTE DATE OF : 89 PHYSICIAN: GERALDINE SUÁREZ DO RPT #: [id number] REPORT IS CONFIDENTIAL AND NOT TO BE RELEASED WITHOUT AUTHORIZATION
== END 2022-08-03 11:00 | disposition home or self-care (01) | DRG 807 ==
LOC: FBCO 07:11 → FBC 07:30
PROVIDERS: ADMIT Obstetrics & Gynecology; ATTEND Obstetrics & Gynecology
PROC: 10E0XZZ Delivery of Products of Conception, External Approach (ICD-10-PCS; principal; 2022-08-01)
PROC: 10907ZC Drainage of Amniotic Fluid, Therapeutic from Products of Conception, Via Natural or Artificial Opening (ICD-10-PCS; 2022-08-01)
PROC: 3E0R3BZ Introduction of Anesthetic Agent into Spinal Canal, Percutaneous Approach (ICD-10-PCS; 2022-08-01)
PROC: 00HU33Z Insertion of Infusion Device into Spinal Canal, Percutaneous Approach (ICD-10-PCS; 2022-08-01)
DX: O99.62 Diseases of the digestive system complicating childbirth (principal); Z37.0 Single live birth; Z20.822 Contact with and (suspected) exposure to COVID-19; O69.81X0 Labor and delivery complicated by cord around neck, without compression, not applicable or unspecified; Z3A.39 39 weeks gestation of pregnancy
CPT/HCPCS: 01960; 36415; 83030; 85027; 86850; 86900; 86901; 87502; A9270; C9803; J2405; J2590; J2790; J2795; J3010; J7121; U0003